=== PATIENT | male | born 1940 | race Caucasian/White ===

== ENCOUNTER 2018-06-24 21:48 | Emergency (ER) | payer MEDICARE, BC ==
[2018-06-24] MEDS ORDERED: Levofloxacin 500 MG Tab PO ONE (22:31)
--- NOTE | 2018-06-24 22:34 | EDM.PDOC ---
ED HPI GENERAL MEDICAL PROBLEM - General Chief Complaint: Skin Complaint Stated Complaint: L FOOT BURNING SENSATION Time Seen by Provider: 06/24/18 22:15 Source of Information: Reports: Patient, Family History Limitations: Reports: No Limitations - History of Present Illness INITIAL COMMENTS - FREE TEXT/NARRATIVE: Luisito reports burning involving the L foot near fifth toe today, in addition to some swelling and reddness. This evening, he called his daughter to report that the L foot appeared to be swollen, and she advised him to come in. Upon arrival, there is obvious malodorous discharge eminating from the 5th toe. He has taken no meds. Past Medical History Cardiovascular History: Reports: High Cholesterol, Hypertension Neurological History: Reports: Neuropathy, Peripheral Psychiatric History: Reports: Dementia Endocrine/Metabolic History: Reports: Diabetes, Type II ED ROS GENERAL - Review of Systems Review Of Systems: ROS reveals no pertinent complaints other than HPI. ED EXAM, SKIN/RASH Exam: See Below Exam Limited By: Other (memory impairments) General Appearance: Alert, WD/WN, No Apparent Distress Eye Exam: Bilateral Eye: EOMI, Normal Inspection, PERRL Ears: Normal External Exam Nose: Normal Inspection Throat/Mouth: Normal Voice Head: Normocephalic Neck: Normal Inspection, Supple, Non-Tender Respiratory/Chest: Decreased Breath Sounds Cardiovascular: Regular Rate, Rhythm, No Murmur (Male) Exam: Deferred Rectal (Males) Exam: Deferred Extremities: Other (L foot: some dependent edema and varicosities apparent; forefoot swelling with some erythema in proximity to the 5th toe near interdigital space; a tropic ulcer with debris and some drainage is observed, with some tenderness) Neurological: Alert, CN II-XII Intact, Memory Loss Remote Events, Memory Loss Recent Events Psychiatric: Flat Affect Skin: Warm, Dry, Other (tropic ulceration L 5th toe) Course - Vital Signs Text/Narrative:: I obtained a culture of the drainage from ulcer L 5th toe, cleaned the ulcer and applied a dressing. I administered Levaquin 500 mg po before discharge. - Orders/Labs/Meds Orders: Active Orders 24 hr Category Date Time Status CULTURE ROUTINE + SMEAR [RM] Stat Lab 06/24/18 22:28 Ordered Meds: Medications Discontinued Medications Generic Name Dose Route Start Last Admin Trade Name Freq PRN Reason Stop Dose Admin Levofloxacin 500 mg 06/24/18 22:31 Levaquin PO 06/24/18 22:32 ONETIME ONE Departure - Departure Time of Disposition: 22:40 Disposition: Home, Self-Care 01 Condition: Fair Clinical Impression: Cellulitis of fifth toe of left foot - Discharge Information *PRESCRIPTION DRUG MONITORING PROGRAM REVIEWED*: Not Applicable *COPY OF PRESCRIPTION DRUG MONITORING REPORT IN PATIENT STEVE: Not Applicable Referrals: Edmond Mancia MD [Primary Care Provider] - Forms: ED Department Discharge - Problem List & Annotations (1) Cellulitis of fifth toe of left foot SNOMED Code(s): 81917096 Code(s): L03.032 - CELLULITIS OF LEFT TOE Status: Acute Current Visit: Yes Annotation/Comment:: I suggested daily soaks, and follow up with PCP tomorrow for further management. Surgical debridement needed. - Problem List Review Problem List Initiated/Reviewed/Updated: Yes - My Orders Last 24 Hours: My Active Orders 06/24/18 22:28 CULTURE ROUTINE + SMEAR [RM] Stat - Assessment/Plan Last 24 Hours: My Active Orders 06/24/18 22:28 CULTURE ROUTINE + SMEAR [RM] Stat Plan: Follow up with PCP.
== END 2018-06-24 22:50 | disposition home or self-care (01) ==
LOC: FB.ED 21:48
DX: L03.032 Cellulitis of left toe (principal); E78.00 Pure hypercholesterolemia, unspecified; I10 Essential (primary) hypertension; E11.42 Type 2 diabetes mellitus with diabetic polyneuropathy
CPT/HCPCS: 87070; 87077; 87205; 99283; A9270

== ENCOUNTER 2018-07-01 08:25 | Day surgery (SDC) | payer MEDICARE, BC ==
[2018-07-01] MEDS ORDERED: Propofol 200 MG/20 ML SDV IV ONE (08:26)
[2018-07-01] MEDS ORDERED: Lactated Ringers 1,000 ML IV SCH (09:00)
[2018-07-01] MEDS ORDERED: Sodium Chloride 0.9% 10 ML Syringe FLUSH PRN (09:00)
[2018-07-01] MEDS ORDERED: Levofloxacin/Dextrose 5%-Water 500 MG in Premix Bag 1 BAG IV ONE (09:19)
[2018-07-01] MEDS ORDERED: metroNIDAZOLE/Normal Saline 500 MG in Premix Bag 1 BAG IV ONE (09:20)
[2018-07-01] MEDS ORDERED: Bupivacaine 0.5% 30 ML SDV INJECT ONE (10:35)
[2018-07-01] MEDS ORDERED: Lidocaine 1% 20 ML MDV INJECT ONE (10:35)
--- NOTE | 2018-07-01 10:58 | PCM.OPNOTE ---
- General Post-Op/Procedure Note Date of Surgery/Procedure: 07/01/18 Operative Procedure(s): left 5th toe amputation Findings: necrosis of left 5th toe with exposed bone prox phalange Pre Op Diagnosis: diabetic ulcer left toe with involvement of bone no necrosis Post-Op Diagnosis: diabetic ulcer left toe with involvement of bone with necrosis Anesthesia Technique: Local (7 ml 1 % lido with epi/0.5% buvipicaine), MAC Primary Surgeon: Amando Shannon Anesthesia Provider: Sri Marvin Pathology: left 5th toe Complications: None Condition: Good Free Text/Narrative:: see dictation
--- NOTE | 2018-07-03 11:01 | OR ---
DATE OF OPERATION: 07/01/2018 SURGEON: Amando Shannon MD PROCEDURE PERFORMED: Amputation of left 5th toe. PREOPERATIVE DIAGNOSIS: Necrosis of the left 5th toe with exposed bone. POSTOPERATIVE DIAGNOSIS: Necrosis of the left 5th toe with exposed bone. INDICATIONS FOR PROCEDURE: This is a 78-year-old white male who was referred with an ulceration with exposed bone. He was offered and accepted amputation of the toe. DESCRIPTION OF OPERATION: After an excellent IV sedation was administered, 7 mL of 1% lidocaine with epinephrine, 0.5% bupivacaine was used to create a digital block. A tennis racket incision was then made exposing the underlying proximal flange. This was then followed down to the metatarsophalangeal joint and the joint capsule was entered, and the bone was then transected, and the specimen was passed off the field. The exposed articular head was then amputated using a bone cutter and rongeured. The area was then irrigated and after pulling the flexor tendon and trimming it back in part of the extensor tendon, the subcu tissue was reapproximated with interrupted 2-0 Vicryl, 3-0 nylon was used to close the skin. Dressing was applied. Needle, sponge, and instrument counts were reported as correct. The patient tolerated the procedure well. It should be noted there was some bleeding noted along the skin edges which should encourage healing along with his ABIs. /[id number] /MODL
== END 2018-07-01 12:07 | disposition home or self-care (01) ==
LOC: FB.SDS 08:25
PROVIDERS: ATTEND Surgery
DX: E11.621 Type 2 diabetes mellitus with foot ulcer (principal); L97.524 Non-pressure chronic ulcer of other part of left foot with necrosis of bone; I73.9 Peripheral vascular disease, unspecified; Z79.84 Long term (current) use of oral hypoglycemic drugs; Z79.899 Other long term (current) drug therapy
CPT/HCPCS: 01480-QZ; 82962; 88305; 88311; J1956; J2001; J2704; J3490; J7120

== ENCOUNTER 2018-08-26 11:43 | Inpatient (IN) | payer MEDICARE, BC ==
[2018-08-26] MEDS ORDERED: Nitroglycerin 0.4 MG Tab.SL SL PRN (16:25)
--- NOTE | 2018-08-26 16:33 | PCM.HP ---
H&P History of Present Illness - General Date of Service: 08/26/18 Admit Problem/Dx: Admission Diagnosis/Problem Admission Diagnosis/Problem Dislocation of left hip Source of Information: Patient, Family History Limitations: Reports: No Limitations - History of Present Illness Initial Comments - Free Text/Narative: Luisito is a 78-year-old male admitted to swing bed for rehabilitation. He had a dislocation of the left hip over the weekend and was admitted to [facility].Ortho was consulted, They recommended an abduction brace; which he is wearing. However he is not able to get up,and he needs assistance. He has a history of coronary artery disease, type 2 diabetes, dementia and atrial fibrillation previously on well-controlled. - Related Data Allergies/Adverse Reactions: Allergies Allergy/AdvReac Type Severity Reaction Status Date / Time brimonidine Allergy Other Verified 07/01/18 08:50 diclofenac Allergy Nausea and Verified 07/01/18 08:50 Vomiting morphine Allergy Nausea and Verified 07/01/18 08:50 Vomiting Penicillins Allergy Airway Verified 07/01/18 08:50 Tightness Home Medications: Home Meds Clopidogrel [Plavix] 75 mg PO DAILY 06/24/18 [History] Donepezil HCl 10 mg PO BEDTIME 06/24/18 [History] Isosorbide Mononitrate [Imdur] 30 mg PO DAILY 06/24/18 [History] Metoprolol Tartrate 25 mg PO BID 06/24/18 [History] Rivaroxaban [Xarelto] 20 mg PO WITHDINNER 06/24/18 [History] metFORMIN [Glucophage] 500 mg PO BID 06/24/18 [History] Capsaicin [Zostrix 0.025% Crm] 1 applic TP QID PRN 06/30/18 [History] Nitroglycerin [Nitrostat] 0.4 mg SL Q5M PRN 06/30/18 [History] Acetaminophen [Tylenol] 650 mg PO Q6H 08/26/18 [History] Dextran 70/Hypromellose [Artificial Tears] 1 drop EYELF Q4H PRN 08/26/18 [ History] Lidocaine 5% [Lidoderm 5%] 700 mg TOP DAILY 08/26/18 [History] Rosuvastatin [Crestor] 40 mg PO DAILY 08/26/18 [History] Sennosides/Docusate Sodium [Senna-S] 1 tab PO BID 08/26/18 [History] Past Medical History HEENT History: Reports: Glaucoma, Hard of Hearing, Impaired Vision Other HEENT History: ASTIGMATISM Cardiovascular History: Reports: Afib, Angina, Blood Clots/VTE/DVT, CAD, High Cholesterol, Hypertension, NE, PVD Musculoskeletal History: Reports: Other (See Below) Other Musculoskeletal History: ENTHESOPATHY OF HIP REGION Neurological History: Reports: Neuropathy, Peripheral Other Neuro History: CONFUSION, DEMENTIA Psychiatric History: Reports: Dementia Endocrine/Metabolic History: Reports: Diabetes, Type II, Obesity/BMI 30+ Dermatologic History: Reports: Other (See Below) Other Dermatologic History: bruising easily - Past Surgical History Other HEENT Surgeries/Procedures: EYE PROCEDURE Other Cardiovascular Surgeries/Procedures: EXPRESS SHUNT, CARDIAC CATHETERIZATION Musculoskeletal Surgical History: Reports: Hip Replacement, Joint Replacement Social & Family History - Family History Family Medical History: Noncontributory - Tobacco Use Smoking Status *Q: Former Smoker Years of Tobacco use: 40 Used Tobacco, but Quit: No Month/Year Tobacco Last Used: 1985 Second Hand Smoke Exposure: No - Caffeine Use Caffeine Use: Reports: Coffee - Alcohol Use Days Per Week of Alcohol Use: 7 Number of Drinks Per Day: 1 Total Drinks Per Week: 7 - Recreational Drug Use Recreational Drug Use: No H&P Review of Systems - Review of Systems: Review Of Systems: ROS reveals no pertinent complaints other than HPI. Exam - Exam Exam: See Below - Vital Signs Weight: 87.997 kg - Exam General: Alert, Oriented, 4 HEENT: PERRLA, Hearing Intact, Mucosa Moist & [place], Nares Patent, Normal Nasal Septum, Posterior Pharynx Clear, Conjunctiva Clear, EOMI, EACs Clear, TMs Clear Neck: Supple, Trachea Midline, 2 Lungs: Clear to Auscultation, Normal Respiratory Effort Cardiovascular: Irregular Rhythm GI/Abdominal Exam: Normal Bowel Sounds, Soft, Non-Tender, No Organomegaly, No Distention, No Abnormal Bruit, No Mass, Pelvis Stable (Male) Exam: Deferred Rectal (Males) Exam: Deferred Back Exam: Normal Inspection, Full Range of Motion, NT Extremities: Normal Inspection, Normal Range of Motion, Non-Tender, No Pedal Edema, Normal Capillary Refill Skin: Warm, Dry, Intact Neurological: Cranial Nerves Intact, Reflexes Equal Bilateral Neuro Extensive - Mental Status: Alert, Oriented x3, Normal Mood/Affect, Normal Cognition Neuro Extensive - Motor, Sensory, Reflexes: CN II-XII Intact, Normal Gait, Normal Reflexes Psychiatric: Alert, Other (memory impaired) - Problem List (1) Hip dislocation, left SNOMED Code(s): 676232233 ICD Code: S73.005A - UNSPECIFIED DISLOCATION OF LEFT HIP, INITIAL ENCOUNTER Status: Acute Current Visit: Yes Qualifiers: Encounter type: subsequent encounter Qualified Code(s): S73.005D - Unspecified dislocation of left hip, subsequent encounter (2) Dementia SNOMED Code(s): 44765695 ICD Code: F03.90 - UNSPECIFIED DEMENTIA WITHOUT BEHAVIORAL DISTURBANCE Status: Chronic Current Visit: Yes Qualifiers: Dementia type: Alzheimer's disease (3) Debility SNOMED Code(s): 51300171 ICD Code: R53.81 - OTHER MALAISE Status: Acute Current Visit: Yes (4) Diabetes type 2, controlled SNOMED Code(s): 24637695, 927953294 ICD Code: E11.9 - TYPE 2 DIABETES MELLITUS WITHOUT COMPLICATIONS Status: Acute Current Visit: Yes Qualifiers: Diabetes mellitus alf insulin use: without alf use (5) CAD (coronary artery disease) SNOMED Code(s): 19908899 ICD Code: I25.10 - ATHSCL HEART DISEASE OF [place] CORONARY ARTERY W/O ANG PCTRS Status: Chronic Current Visit: Yes Qualifiers: Coronary Disease-Associated Artery/Lesion type: [place] artery (6) Afib SNOMED Code(s): 89113127 ICD Code: I48.91 - UNSPECIFIED ATRIAL FIBRILLATION Status: Chronic Current Visit: Yes Qualifiers: Atrial fibrillation type: chronic Qualified Code(s): I48.2 - Chronic atrial fibrillation (7) Peripheral vascular disease SNOMED Code(s): 153864005 ICD Code: I73.9 - PERIPHERAL VASCULAR DISEASE, UNSPECIFIED Status: Chronic Current Visit: Yes (8) H/O deep venous thrombosis SNOMED Code(s): 202593516 ICD Code: Z86.718 - PERSONAL HISTORY OF OTHER VENOUS THROMBOSIS AND EMBOLISM Status: Chronic Current Visit: Yes Problem List Initiated/Reviewed/Updated: Yes Orders Last 24hrs: Active Orders 24 hr Category Date Time Status Patient Status [ADT] Routine ADT 08/26/18 16:23 Ordered Height and Weight [RC] WEEKLY Care 08/26/18 16:23 Ordered Oxygen Therapy [RC] PRN Care 08/26/18 16:23 Ordered Up With Assistance [RC] ASDIRECTED Care 08/26/18 16:23 Ordered VTE/DVT Education [RC] Per Unit Routine Care 08/26/18 16:23 Ordered Vital Signs [RC] PER UNIT ROUTINE Care 08/26/18 16:23 Ordered OT Evaluation and Treatment [CONS] Routine Cons 08/26/18 16:23 Ordered PT Evaluation and Treatment [CONS] Routine Cons 08/26/18 16:23 Ordered Consistent Carbohydrate Diet [DIET] Diet 08/26/18 Dinner Ordered Acetaminophen [Tylenol] Med 08/26/18 16:30 Ordered 650 mg PO Q6H Clopidogrel [Plavix] Med 08/27/18 09:00 Ordered 75 mg PO DAILY Dextran 70/Hypromellose [Artificial Tears] Med 08/26/18 16:25 Ordered 1 drop EYELF Q4H PRN Docusate Sodium/Sennosides [Senna Plus] Med 08/26/18 21:00 Ordered 1 tab PO BID Donepezil [Aricept] Med 08/26/18 21:00 Ordered 10 mg PO BEDTIME Isosorbide Mononitrate [Imdur] Med 08/27/18 09:00 Ordered 30 mg PO DAILY Lidocaine 5% [Lidoderm 5%] Med 08/27/18 09:00 Ordered 700 mg TOP DAILY Metoprolol Tartrate [Lopressor] Med 08/26/18 21:00 Ordered 25 mg PO BID Nitroglycerin [Nitrostat] Med 08/26/18 16:25 Ordered 0.4 mg SL Q5M PRN Rivaroxaban [Xarelto] Med 08/26/18 18:00 Ordered 20 mg PO WITHDINNER Rosuvastatin [Crestor] Med 08/27/18 09:00 Ordered 40 mg PO DAILY metFORMIN [Glucophage] Med 08/26/18 21:00 Ordered 500 mg PO BID Resuscitation Status Routine Resus Stat 08/26/18 16:23 Ordered Medication Orders Acetaminophen (Tylenol) 650 mg PO Q6H [facility] Clopidogrel Bisulfate (Plavix) 75 mg PO DAILY [facility] Donepezil HCl (Aricept) 10 mg PO BEDTIME [facility] Isosorbide Mononitrate (Imdur) 30 mg PO DAILY [facility] Lidocaine (Lidoderm 5%) 700 mg TOP DAILY [facility] Metformin HCl (Glucophage) 500 mg PO BID [facility] Metoprolol Tartrate (Lopressor) 25 mg PO BID [facility] Nitroglycerin (Nitrostat) 0.4 mg SL Q5M PRN PRN Reason: Chest Pain Non-Formulary Medication (Dextran 70/Hypromellose [Artificial Tears]) 1 drop EYELF Q4H PRN PRN Reason: Dry Eyes Non-Formulary Medication (Rosuvastatin [Crestor]) 40 mg PO DAILY [facility] Rivaroxaban (Xarelto) 20 mg PO WITHDINNER [facility] Senna/Docusate Sodium (Senna Plus) 1 tab PO BID [facility] Assessment/Plan Comment:: I recommend admission,PT/OT. and Resume home meds.
[2018-08-26] MEDS ORDERED: Polyvinyl Alcohol 1.4% Ophth Soln 15 ML Bottle EYELF PRN (17:00)
[2018-08-26] MEDS: Acetaminophen 325 MG Tab PO SCH ×2 (18:07→21:40)
[2018-08-26] MEDS: metFORMIN 500 MG Tab PO SCH (18:07)
[2018-08-26] MEDS: Metoprolol Tartrate 25 MG Tab PO SCH (21:40)
[2018-08-26] MEDS: Donepezil 10 MG Tab PO SCH (21:41)
[2018-08-27] MEDS: Acetaminophen 325 MG Tab PO SCH ×4 (05:07→21:30)
[2018-08-27] MEDS: Isosorbide Mononitrate 30 MG Tab.ER PO SCH (08:53)
[2018-08-27] MEDS: metFORMIN 500 MG Tab PO SCH ×2 (08:53→17:59)
[2018-08-27] MEDS: Rosuvastatin 20 MG Tab PO SCH (08:53)
[2018-08-27] MEDS: Metoprolol Tartrate 25 MG Tab PO SCH ×2 (08:54→21:22)
[2018-08-27] MEDS: Clopidogrel 75 MG Tab PO SCH (08:54)
[2018-08-27] MEDS ORDERED: Lidocaine 5% 700 MG Patch TOP SCH (09:00)
[2018-08-27] MEDS: Donepezil 10 MG Tab PO SCH (21:22)
[2018-08-28] MEDS: Acetaminophen 325 MG Tab PO SCH ×4 (04:15→21:30)
[2018-08-28] MEDS: Rosuvastatin 20 MG Tab PO SCH (09:20)
[2018-08-28] MEDS: metFORMIN 500 MG Tab PO SCH ×2 (09:20→17:31)
[2018-08-28] MEDS: Isosorbide Mononitrate 30 MG Tab.ER PO SCH (09:20)
[2018-08-28] MEDS: Clopidogrel 75 MG Tab PO SCH (09:21)
[2018-08-28] MEDS: Metoprolol Tartrate 25 MG Tab PO SCH ×2 (09:21→21:13)
[2018-08-28] MEDS: Donepezil 10 MG Tab PO SCH (21:13)
[2018-08-29] MEDS: Acetaminophen 325 MG Tab PO SCH ×4 (04:17→21:40)
[2018-08-29] MEDS: Isosorbide Mononitrate 30 MG Tab.ER PO SCH (08:22)
[2018-08-29] MEDS: metFORMIN 500 MG Tab PO SCH ×2 (08:22→18:08)
[2018-08-29] MEDS: Rosuvastatin 20 MG Tab PO SCH (08:22)
[2018-08-29] MEDS: Clopidogrel 75 MG Tab PO SCH (08:23)
[2018-08-29] MEDS: Metoprolol Tartrate 25 MG Tab PO SCH ×2 (08:23→21:39)
[2018-08-29] MEDS: Donepezil 10 MG Tab PO SCH (21:39)
[2018-08-30] MEDS: Acetaminophen 325 MG Tab PO SCH ×4 (04:02→22:06)
[2018-08-30] MEDS: metFORMIN 500 MG Tab PO SCH ×2 (10:25→18:27)
[2018-08-30] MEDS: Rosuvastatin 20 MG Tab PO SCH (10:26)
[2018-08-30] MEDS: Isosorbide Mononitrate 30 MG Tab.ER PO SCH (10:26)
[2018-08-30] MEDS: Metoprolol Tartrate 25 MG Tab PO SCH ×2 (10:27→20:41)
[2018-08-30] MEDS: Clopidogrel 75 MG Tab PO SCH (10:28)
[2018-08-30] MEDS: Donepezil 10 MG Tab PO SCH (20:41)
[2018-08-31] MEDS: Acetaminophen 325 MG Tab PO SCH ×2 (04:00→10:04)
[2018-08-31] MEDS: metFORMIN 500 MG Tab PO SCH (07:47)
[2018-08-31] MEDS: Metoprolol Tartrate 25 MG Tab PO SCH (08:59)
[2018-08-31] MEDS: Clopidogrel 75 MG Tab PO SCH (08:59)
[2018-08-31] MEDS: Rosuvastatin 20 MG Tab PO SCH (08:59)
[2018-08-31] MEDS: Isosorbide Mononitrate 30 MG Tab.ER PO SCH (09:00)
--- NOTE | 2018-08-31 15:06 | PN ---
DATE SEEN: 08/31/2018 SUBJECTIVE: Luisito Mata is a delightful 78-year-old, male, seen today for review. [place]. Had a recent left hip dislocation, reapproximation. Has a specific brace on board. PT referral timely and appropriate. Doing well. Ambulating using a walker. OBJECTIVE: GENERAL: Appears comfortable. Speech was fluent. NECK: Benign. Thyroid small. CHEST: Clear in all lung valdez. HEART: No ectopy or murmur. ABDOMEN: Benign. ASSESSMENT: Left hip dislocation. PLAN: Appears well, comfortable with brace. has been instructed on brace impact and options, followup appointment with Orthopedics planned. Analgesics on board. Tylenol is all that is required. Medications will be continued as appropriate. Discharge planning, exam, and discharge notification one-half hour duration. /[id number] 1221 DAYNA/ADRIANA
== END 2018-08-31 11:30 | disposition home or self-care (01) | DRG 950 ==
LOC: FB.MS 14:30
PROVIDERS: ADMIT Family Medicine; ATTEND Family Medicine
DX: S73.005D Unspecified dislocation of left hip, subsequent encounter (principal); R53.81 Other malaise; E11.42 Type 2 diabetes mellitus with diabetic polyneuropathy; I25.10 Atherosclerotic heart disease of native coronary artery without angina pectoris; M76.9 Unspecified enthesopathy, lower limb, excluding foot; I48.2 Chronic atrial fibrillation; Z79.01 Long term (current) use of anticoagulants; I73.9 Peripheral vascular disease, unspecified; Z86.718 Personal history of other venous thrombosis and embolism; H40.9 Unspecified glaucoma; H91.90 Unspecified hearing loss, unspecified ear; H54.7 Unspecified visual loss; H52.209 Unspecified astigmatism, unspecified eye; E78.00 Pure hypercholesterolemia, unspecified; I25.2 Old myocardial infarction; Z87.891 Personal history of nicotine dependence; E66.9 Obesity, unspecified; Z68.25 Body mass index [BMI] 25.0-25.9, adult; Z79.84 Long term (current) use of oral hypoglycemic drugs; Z88.5 Allergy status to narcotic agent; Z88.0 Allergy status to penicillin; Z88.8 Allergy status to other drugs, medicaments and biological substances
CPT/HCPCS: 97165-GO; 97530-GO; 97535-GO; A9270-GY

== ENCOUNTER 2019-02-03 02:38 | Emergency (ER) | payer MEDICARE, BC ==
--- NOTE | 2019-02-03 04:48 | EDM.PDOC ---
ED HPI GENERAL MEDICAL PROBLEM - General Chief Complaint: General Stated Complaint: weakness Time Seen by Provider: 02/03/19 02:55 Source of Information: Reports: Patient - History of Present Illness INITIAL COMMENTS - FREE TEXT/NARRATIVE: Patient presented to the ED because of feeling weak. There is no cough and cold, no fever/chills. There is no N/V/D. Patient's daughter that he requires a lot of help to ambulate. She doesn't exactly know if it's related to his PAD. - Related Data Allergies Allergy/AdvReac Type Severity Reaction Status Date / Time brimonidine Allergy Other Verified 07/01/18 08:50 diclofenac Allergy Nausea and Verified 07/01/18 08:50 Vomiting morphine Allergy Nausea and Verified 07/01/18 08:50 Vomiting Penicillins Allergy Airway Verified 07/01/18 08:50 Tightness Home Meds: Home Meds Clopidogrel [Plavix] 75 mg PO DAILY 06/24/18 [History] Donepezil HCl 10 mg PO BEDTIME 06/24/18 [History] Isosorbide Mononitrate [Imdur] 30 mg PO DAILY 06/24/18 [History] Metoprolol Tartrate 25 mg PO BID 06/24/18 [History] Rivaroxaban [Xarelto] 20 mg PO WITHDINNER 06/24/18 [History] metFORMIN [Glucophage] 500 mg PO BID 06/24/18 [History] Capsaicin [Zostrix 0.025% Crm] 1 applic TP QID PRN 06/30/18 [History] Nitroglycerin [Nitrostat] 0.4 mg SL Q5M PRN 06/30/18 [History] Acetaminophen [Tylenol] 650 mg PO Q6H 08/26/18 [History] Dextran 70/Hypromellose [Artificial Tears] 1 drop EYELF Q4H PRN 08/26/18 [ History] Lidocaine 5% [Lidoderm 5%] 700 mg TOP DAILY 08/26/18 [History] Rosuvastatin [Crestor] 40 mg PO DAILY 08/26/18 [History] Sennosides/Docusate Sodium [Senna-S] 1 tab PO BID 08/26/18 [History] Sulfamethoxazole/Trimethoprim [Bactrim Ds Tablet] 1 tab PO BID 02/03/19 [History ] Past Medical History HEENT History: Reports: Glaucoma, Hard of Hearing, Impaired Vision Other HEENT History: ASTIGMATISM Cardiovascular History: Reports: Afib, Angina, Blood Clots/VTE/DVT, CAD, High Cholesterol, Hypertension, [place], PVD, Stents, Other (See Below) Other Cardiovascular History: peripheral artery disease Musculoskeletal History: Reports: Other (See Below) Other Musculoskeletal History: ENTHESOPATHY OF HIP REGION Neurological History: Reports: Neuropathy, Peripheral Other Neuro History: CONFUSION, DEMENTIA Psychiatric History: Reports: Dementia Endocrine/Metabolic History: Reports: Diabetes, Type II, Obesity/BMI 30+ Dermatologic History: Reports: Other (See Below) Other Dermatologic History: bruising easily - Past Surgical History Other HEENT Surgeries/Procedures: EYE PROCEDURE Other Cardiovascular Surgeries/Procedures: EXPRESS SHUNT, CARDIAC CATHETERIZATION Musculoskeletal Surgical History: Reports: Hip Replacement, Joint Replacement Social & Family History - Family History Family Medical History: Noncontributory - Tobacco Use Smoking Status *Q: Never Smoker - Caffeine Use Caffeine Use: Reports: Coffee - Recreational Drug Use Recreational Drug Use: No ED ROS GENERAL - Review of Systems Review Of Systems: See Below Constitutional: Reports: No Symptoms HEENT: Reports: No Symptoms Respiratory: Reports: No Symptoms Cardiovascular: Reports: No Symptoms GI/Abdominal: Reports: No Symptoms : Reports: No Symptoms Musculoskeletal: Reports: No Symptoms Skin: Reports: No Symptoms Neurological: Reports: Weakness Psychiatric: Reports: No Symptoms ED EXAM, GENERAL - Physical Exam Exam: See Below Exam Limited By: Other (dementia-unable to answer questions and follow comands.) Ears: Normal External Exam, Normal Canal, Hearing Loss GI/Abdominal: Normal Bowel Sounds, Soft, No Organomegaly, No Distention, No Abnormal Bruit (Male) Exam: No Hernia, Normal Inspection Back Exam: Normal Inspection Neurological: Alert, Oriented, CN II-XII Intact, Normal Cognition Course - Vital Signs Text/Narrative:: Labs/EKG/CXR reviewed with patient and family His BNP is elevated but he is not in failure, oxygen saturation is 95% on RA no crackles or edema. Last Recorded V/S: Last Vital Signs Temp 36.8 C 02/03/19 02:40 Pulse 84 02/03/19 02:40 Resp 16 02/03/19 02:40 BP 125/61 02/03/19 02:40 Pulse Ox 93 L 02/03/19 02:40 - Orders/Labs/Meds Orders: Active Orders 24 hr Category Date Time Status EKG Documentation Completion [RC] ASDIRECTED Care 02/03/19 03:03 Active EKG 12 Lead [EK] Routine Ther 02/03/19 03:03 Ordered Labs: Laboratory Tests 02/03/19 02/03/19 02/03/19 Range/Units 03:20 03:20 03:20 WBC 6.6 (4.5-12.0) X10-3/uL RBC 3.42 L (4.30-5.75) x10(6)uL Hgb 12.2 L (13.5-17.8) g/dL Hct 35.6 (30.0-51.3) % MCV 103.8 H (80-96) fL MCH 35.7 H (27.7-33.6) pg MCHC 34.4 (32.2-35.4) g/dL RDW 12.8 (11.5-15.5) % Plt Count 230 (125-369) X10(3)uL MPV 6.8 L (7.4-10.4) fL Add Manual Diff Yes Neutrophils % (Manual) 72 (46-82) % Band Neutrophils % 2 (0-6) % Lymphocytes % (Manual) 12 L (13-37) % Monocytes % (Manual) 10 (4-12) % Eosinophils % (Manual) 4 (0-5) % Sodium 135 (135-145) mmol/L Potassium 4.5 (3.5-5.3) mmol/L Chloride 100 (100-110) mmol/L Carbon Dioxide 23 (21-32) mmol/L BUN 10 (7-18) mg/dL Creatinine 1.1 (0.70-1.30) mg/dL Est Cr Clr Drug Dosing TNP Estimated GFR (MDRD) > 60 (>60) BUN/Creatinine Ratio 9.1 (9-20) Glucose 189 H (80-116) mg/dL Lactic Acid (0.4-2.2) mmol/L Calcium 8.7 (8.6-10.2) mg/dL Total Bilirubin 0.9 (0.1-1.3) mg/dL AST 22 (5-25) IU/L ALT 34 (12-36) U/L Alkaline Phosphatase 49 L (56-112) IU/L Troponin I 0.052 (<0.017-0.056) ng/mL NT-Pro-B Natriuret Pep 1697 H* (<=450) pg/mL Total Protein 7.1 (6.0-8.0) g/dL Albumin 3.4 (3.2-4.6) g/dL Globulin 3.7 g/dL Albumin/Globulin Ratio 0.9 02/03/19 Range/Units 03:20 WBC (4.5-12.0) X10-3/uL RBC (4.30-5.75) x10(6)uL Hgb (13.5-17.8) g/dL Hct (30.0-51.3) % MCV (80-96) fL MCH (27.7-33.6) pg MCHC (32.2-35.4) g/dL RDW (11.5-15.5) % Plt Count (125-369) X10(3)uL MPV (7.4-10.4) fL Add Manual Diff Neutrophils % (Manual) (46-82) % Band Neutrophils % (0-6) % Lymphocytes % (Manual) (13-37) % Monocytes % (Manual) (4-12) % Eosinophils % (Manual) (0-5) % Sodium (135-145) mmol/L Potassium (3.5-5.3) mmol/L Chloride (100-110) mmol/L Carbon Dioxide (21-32) mmol/L BUN (7-18) mg/dL Creatinine (0.70-1.30) mg/dL Est Cr Clr Drug Dosing Estimated GFR (MDRD) (>60) BUN/Creatinine Ratio (9-20) Glucose (80-116) mg/dL Lactic Acid 1.9 (0.4-2.2) mmol/L Calcium (8.6-10.2) mg/dL Total Bilirubin (0.1-1.3) mg/dL AST (5-25) IU/L ALT (12-36) U/L Alkaline Phosphatase (56-112) IU/L Troponin I (<0.017-0.056) ng/mL NT-Pro-B Natriuret Pep (<=450) pg/mL Total Protein (6.0-8.0) g/dL Albumin (3.2-4.6) g/dL Globulin g/dL Albumin/Globulin Ratio Departure - Departure Time of Disposition: 04:45 Disposition: Home, W Home Health Agency 06 Condition: Good Clinical Impression: Weakness, Fatigue - Discharge Information Instructions: Fatigue Referrals: Edmond Mancia MD [Primary Care Provider] - Forms: ED Department Discharge Additional Instructions: please read discharge instructions on weakness and fatigue continue your antibiotics until gone keep your appointment tyo see the vascular surgeon today - My Orders Last 24 Hours: My Active Orders 02/03/19 03:03 EKG Documentation Completion [RC] ASDIRECTED EKG 12 Lead [EK] Routine - Assessment/Plan Last 24 Hours: My Active Orders 02/03/19 03:03 EKG Documentation Completion [RC] ASDIRECTED EKG 12 Lead [EK] Routine
--- NOTE | 2019-02-03 10:56 | CR ---
INDICATION: Weakness, cough. CHEST: An AP upright view of the chest was obtained with the patient unable to fully cooperate with the examination, relatively poor inspiration is noted. Overlying EKG leads are noted. Snaps are noted overlying the chest. The heart is enlarged. The aorta is tortuous. A consolidating pneumonia or effusion was not identified. However, with the poor inspiration and somewhat heavy markings at the lung bases , it is difficult to exclude minimal patchy bronchopneumonia at the lung bases. Findings compatible with exogenous obesity are noted. IMPRESSION: 1. No definite acute process but difficult to exclude minimal patchy bronchopneumonia at the lung bases. 2. ASHD with cardiomegaly. 3. Exogenous obesity. MTDD
== END 2019-02-03 05:00 | disposition home health service (06) ==
LOC: FB.ED 02:38
DX: R53.1 Weakness (principal); R53.83 Other fatigue; I48.91 Unspecified atrial fibrillation; E78.5 Hyperlipidemia, unspecified; I25.10 Atherosclerotic heart disease of native coronary artery without angina pectoris; E11.9 Type 2 diabetes mellitus without complications; E66.9 Obesity, unspecified; Z88.5 Allergy status to narcotic agent; Z88.0 Allergy status to penicillin; Z88.6 Allergy status to analgesic agent; Z88.8 Allergy status to other drugs, medicaments and biological substances; Z79.84 Long term (current) use of oral hypoglycemic drugs; Z79.899 Other long term (current) drug therapy; Z79.02 Long term (current) use of antithrombotics/antiplatelets
CPT/HCPCS: 36415; 71045; 80053; 83605; 83880; 84484; 85025; 93005; 99285-25

== ENCOUNTER 2019-04-13 13:55 | Inpatient (IN) | payer MEDICARE, BC ==
[2019-04-13] MEDS ORDERED: Nitroglycerin 0.4 MG Tab.SL SL PRN (17:16)
[2019-04-13] MEDS ORDERED: Polyvinyl Alcohol 1.4% Ophth Soln 15 ML Bottle EYELF PRN (17:16)
[2019-04-13] MEDS ORDERED: Acetaminophen 325 MG Tab PO PRN (17:16)
--- NOTE | 2019-04-13 17:29 | PCM.HP.2 ---
H&P History of Present Illness - General Date of Service: 04/13/19 Admit Problem/Dx: Admission Diagnosis/Problem Admission Diagnosis/Problem Rehabilitation therapy Source of Information: Patient, Family, Old Records - History of Present Illness Initial Comments - Free Text/Narative: Luisito is 78 yr old male who was admitted to [facility] on Apr 05 for non- healing chronic right foot ulcer. MRI showed small area of osteomyelitis of 1st metatarsal. He underwent debridement on 04/11 and IV antibiotics were discontinued as bone margins were negative. Patient also had CTA of abdomen that showed extensive femoral stenosis. He underwent femoral stenting on Apr 07. He has surgical boot on, weight bearing as tolerated. PT/OT recommended. Had wound vac placed on Apr 07, remove wound vac when battery dies. Dry sterile dressing can stay on until patient follows up with Dr Jones, podiatry Apr 28. Follow up with vascular surgery on Apr 21. Follow up with Dr Mancia on Apr 22. Hgb 10.4 which has been stable for last few days. He is feeling fine, no complaints when arrived to swing bed. Flu vaccin 01/10/2019, Pneumococcal PCV 13 10/30/2018, PPSV23 01/21/2011, Shingrix 02/15/2019, 11/05/2018, TDAP 08/21/2010. - Related Data Allergies/Adverse Reactions: Allergies Allergy/AdvReac Type Severity Reaction Status Date / Time brimonidine Allergy Other Verified 04/13/19 14:52 diclofenac Allergy Nausea and Verified 04/13/19 14:52 Vomiting morphine Allergy Nausea and Verified 04/13/19 14:52 Vomiting Penicillins Allergy Airway Verified 04/13/19 14:52 Tightness Home Medications: Home Meds Donepezil HCl 10 mg PO BEDTIME 06/24/18 [History] Isosorbide Mononitrate [Imdur] 30 mg PO DAILY 06/24/18 [History] Metoprolol Tartrate 25 mg PO BID 06/24/18 [History] Rivaroxaban [Xarelto] 20 mg PO WITHDINNER 06/24/18 [History] metFORMIN [Glucophage] 500 mg PO BIDMEALS 06/24/18 [History] Nitroglycerin [Nitrostat] 0.4 mg SL Q5M PRN 06/30/18 [History] Acetaminophen [Tylenol] 650 mg PO Q6H PRN 08/26/18 [History] Rosuvastatin [Crestor] 40 mg PO DAILY 08/26/18 [History] Aspirin 81 mg PO DAILY 04/13/19 [History] Cyanocobalamin (Vitamin B-12) [Vitamin B-12] 500 mcg PO DAILY 04/13/19 [History] Folic Acid 0.8 mg PO DAILY 04/13/19 [History] Polyvinyl Alcohol [Liquitears] 1 drop EYELF Q4H PRN 04/13/19 [History] Past Medical History HEENT History: Reports: Glaucoma, Hard of Hearing, Impaired Vision Other HEENT History: ASTIGMATISM Cardiovascular History: Reports: Afib, Angina, Blood Clots/VTE/DVT, CAD, High Cholesterol, Hypertension, [place], PVD, Stents, Other (See Below) Other Cardiovascular History: peripheral artery disease Musculoskeletal History: Reports: Other (See Below) Other Musculoskeletal History: ENTHESOPATHY OF HIP REGION Neurological History: Reports: Neuropathy, Peripheral Other Neuro History: CONFUSION, DEMENTIA Psychiatric History: Reports: Dementia Endocrine/Metabolic History: Reports: Diabetes, Type II, Obesity/BMI 30+ Dermatologic History: Reports: Other (See Below) Other Dermatologic History: bruising easily - Past Surgical History Other HEENT Surgeries/Procedures: EYE PROCEDURE Cardiovascular Surgical History: Reports: Vascular Surgery (femoral stents 2019) Other Cardiovascular Surgeries/Procedures: EXPRESS SHUNT, CARDIAC CATHETERIZATION Musculoskeletal Surgical History: Reports: Hip Replacement, Joint Replacement, Other (See Below) (left 5th toe amputation, partial resection of 1st ray right foot with debridement 04/11/2019) Social & Family History - Family History Family Medical History: Noncontributory - Tobacco Use Smoking Status *Q: Former Smoker Years of Tobacco use: 20 Used Tobacco, but Quit: No - Caffeine Use Caffeine Use: Reports: Coffee, Soda Caffeine Use Comment: 1 cup per day - Alcohol Use Days Per Week of Alcohol Use: 1 Number of Drinks Per Day: 1 Total Drinks Per Week: 1 Date of Last Drink: 04/02/19 - Recreational Drug Use Recreational Drug Use: No H&P Review of Systems - Review of Systems: Review Of Systems: See Below General: Reports: No Symptoms HEENT: Reports: No Symptoms Pulmonary: Reports: No Symptoms Cardiovascular: Reports: No Symptoms Gastrointestinal: Reports: No Symptoms Genitourinary: Reports: No Symptoms Musculoskeletal: Denies: Leg Pain, Foot Pain Skin: Reports: Wound (right foot, right groin) Neurological: Reports: Pre-Existing Deficit Hematologic/Lymphatic: Reports: Anemia Exam - Exam Exam: See Below - Vital Signs Vital Signs: Last Vital Signs Temp 97.4 F 04/13/19 16:28 Pulse 69 04/13/19 16:28 Resp 18 04/13/19 16:28 BP 119/79 04/13/19 16:28 Pulse Ox 99 04/13/19 16:28 - Exam General: Alert, Oriented, Cooperative. No: Mild Distress HEENT: PERRLA, Conjunctiva Clear, Mucosa Moist & [place], Nares Patent, Posterior Pharynx Clear Neck: Supple, Trachea Midline. 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 SNOMED Code(s): 26053824378079011 ICD Code: Z89.411 - ACQUIRED ABSENCE OF RIGHT GREAT TOE Status: Acute Current Visit: Yes Onset Date: 04/11/19 (2) S/P debridement SNOMED Code(s): 501130021, 355975212 ICD Code: Z98.890 - OTHER SPECIFIED POSTPROCEDURAL STATES Status: Acute Current Visit: Yes Onset Date: 04/11/19 (3) S/P vascular surgery SNOMED Code(s): 920202378, 403299485 ICD Code: Z98.890 - OTHER SPECIFIED POSTPROCEDURAL STATES Status: Acute Current Visit: Yes Onset Date: 04/07/19 Problem Details: Right femoral endarterectomy (4) Diabetes type 2, controlled SNOMED Code(s): 32463200, 801415158 ICD Code: E11.9 - TYPE 2 DIABETES MELLITUS WITHOUT COMPLICATIONS Status: Acute Current Visit: No Qualifiers: Diabetes mellitus penitentiary insulin use: without buttermaker helper use (5) Afib SNOMED Code(s): 89521952 ICD Code: I48.91 - UNSPECIFIED ATRIAL FIBRILLATION Status: Chronic Current Visit: No Qualifiers: Atrial fibrillation type: chronic (6) CAD (coronary artery disease) SNOMED Code(s): 34925815 ICD Code: I25.10 - ATHSCL HEART DISEASE OF [place] CORONARY ARTERY W/O ANG PCTRS Status: Chronic Current Visit: No Qualifiers: Coronary Disease-Associated Artery/Lesion type: [place] artery (7) Dementia SNOMED Code(s): 20931022 ICD Code: F03.90 - UNSPECIFIED DEMENTIA WITHOUT BEHAVIORAL DISTURBANCE Status: Chronic Current Visit: No Qualifiers: Dementia type: Alzheimer's disease (8) Peripheral vascular disease SNOMED Code(s): 118756151 ICD Code: I73.9 - PERIPHERAL VASCULAR DISEASE, UNSPECIFIED Status: Chronic Current Visit: No Problem List Initiated/Reviewed/Updated: Yes Orders Last 24hrs: Active Orders 24 hr Category Date Time Status Patient Status [ADT] Routine ADT 04/13/19 16:28 Active Blood Glucose Check, Bedside [RC] 07,17 Care 04/13/19 16:28 Active Dietary Supplements [RC] 07,12,18 Care 04/13/19 16:28 Active Height and Weight [RC] WEEKLY Care 04/13/19 16:28 Active Oxygen Therapy [RC] PRN Care 04/13/19 16:28 Active Up With Assistance [RC] ASDIRECTED Care 04/13/19 16:28 Active VTE/DVT Education [RC] Per Unit Routine Care 04/13/19 16:28 Active Vital Signs [RC] PER UNIT ROUTINE Care 04/13/19 16:28 Active OT Evaluation and Treatment [CONS] Routine Cons 04/13/19 16:28 Active PT Evaluation and Treatment [CONS] Routine Cons 04/13/19 16:28 Active Consistent Carbohydrate Diet [DIET] Diet 04/13/19 Dinner Active Acetaminophen [Tylenol] Med 04/13/19 17:16 Ordered 650 mg PO Q6H PRN Aspirin Med 04/14/19 09:00 Ordered 81 mg PO DAILY Cyanocobalamin (Vitamin B12) [Vitamin B12] Med 04/14/19 09:00 Ordered 500 mcg PO DAILY Donepezil [Aricept] Med 04/13/19 21:00 Ordered 10 mg PO BEDTIME Folic Acid Med 04/14/19 09:00 Ordered 0.8 mg PO DAILY Isosorbide Mononitrate [Imdur] Med 04/14/19 09:00 Ordered 30 mg PO DAILY Metoprolol Tartrate [Lopressor] Med 04/13/19 21:00 Ordered 25 mg PO BID Nitroglycerin [Nitrostat] Med 04/13/19 17:16 Ordered 0.4 mg SL Q5M PRN Polyvinyl Alcohol [LiquiTears 1.4% Ophth Soln] Med 04/13/19 17:16 Ordered DOSE ml EYELF Q4H PRN Rivaroxaban [Xarelto] Med 04/13/19 18:00 Ordered 20 mg PO WITHDINNER Rosuvastatin [Crestor] Med 04/14/19 09:00 Ordered 40 mg PO DAILY metFORMIN [Glucophage] Med 04/13/19 18:00 Ordered 500 mg PO BIDMEALS Resuscitation Status Routine Resus Stat 04/13/19 16:28 Ordered Medication Orders Acetaminophen (Tylenol) 650 mg PO Q6H PRN PRN Reason: HIP PAIN Artificial Tears (Liquitears 1.4% Ophth Soln) ml EYELF Q4H PRN PRN Reason: Dry Eyes Aspirin (Aspirin) 81 mg PO DAILY [facility] Cyanocobalamin (Vitamin B12) 500 mcg PO DAILY [facility] Donepezil HCl (Aricept) 10 mg PO BEDTIME [facility] Folic Acid (Folic Acid) 0.8 mg PO DAILY [facility] Isosorbide Mononitrate (Imdur) 30 mg PO DAILY [facility] Metformin HCl (Glucophage) 500 mg PO BIDMEALS [facility] Metoprolol Tartrate (Lopressor) 25 mg PO BID [facility] Nitroglycerin (Nitrostat) 0.4 mg SL Q5M PRN PRN Reason: Chest Pain Non-Formulary Medication (Rosuvastatin [Crestor]) 40 mg PO DAILY [facility] Rivaroxaban (Xarelto) 20 mg PO WITHDINNER [facility] Assessment/Plan Comment:: 1. Admit to swing bed for PT/OT services. 2. Diabetic diet with supplements. Accuchecks bid. 3. Continue home medications. 4. DVT prophylaxis: patient on Xarelto, will continue. Ambulation per PT/OT. Weight bearing with surgical boot as tolerated. 5. Dry dressing to remain until seen by Podiatry, adjust as needed. Wound vac remove when battery dies. 6. DNR/DNI. - Mortality Measure Prognosis:: Good
[2019-04-13] MEDS: metFORMIN 500 MG Tab PO SCH (18:54)
[2019-04-13] MEDS: Donepezil 10 MG Tab PO SCH (20:35)
[2019-04-13] MEDS: Metoprolol Tartrate 25 MG Tab PO SCH (20:35)
[2019-04-14] MEDS: metFORMIN 500 MG Tab PO SCH ×2 (08:59→18:11)
[2019-04-14] MEDS: Rosuvastatin 20 MG Tab PO SCH (09:00)
[2019-04-14] MEDS: Aspirin 81 MG Tab.Chew PO SCH (09:00)
[2019-04-14] MEDS: Isosorbide Mononitrate 30 MG Tab.ER PO SCH (09:00)
[2019-04-14] MEDS: Folic Acid 0.4 MG Tab PO SCH (09:00)
[2019-04-14] MEDS: Cyanocobalamin (Vitamin B12) 500 MCG Tab PO SCH (09:01)
[2019-04-14] MEDS: Metoprolol Tartrate 25 MG Tab PO SCH ×2 (09:04→20:23)
[2019-04-14] MEDS: Donepezil 10 MG Tab PO SCH (20:23)
[2019-04-15] MEDS: metFORMIN 500 MG Tab PO SCH ×2 (09:19→18:07)
[2019-04-15] MEDS: Aspirin 81 MG Tab.Chew PO SCH (09:19)
[2019-04-15] MEDS: Folic Acid 0.4 MG Tab PO SCH (09:20)
[2019-04-15] MEDS: Cyanocobalamin (Vitamin B12) 500 MCG Tab PO SCH (09:20)
[2019-04-15] MEDS: Rosuvastatin 20 MG Tab PO SCH (09:20)
[2019-04-15] MEDS: Isosorbide Mononitrate 30 MG Tab.ER PO SCH (09:29)
[2019-04-15] MEDS: Metoprolol Tartrate 25 MG Tab PO SCH ×2 (09:30→20:33)
[2019-04-15] MEDS: Donepezil 10 MG Tab PO SCH (20:33)
[2019-04-16] MEDS: Rosuvastatin 20 MG Tab PO SCH (09:56)
[2019-04-16] MEDS: Aspirin 81 MG Tab.Chew PO SCH (09:56)
[2019-04-16] MEDS: metFORMIN 500 MG Tab PO SCH ×2 (09:56→18:31)
[2019-04-16] MEDS: Folic Acid 0.4 MG Tab PO SCH (09:57)
[2019-04-16] MEDS: Isosorbide Mononitrate 30 MG Tab.ER PO SCH (09:57)
[2019-04-16] MEDS: Metoprolol Tartrate 25 MG Tab PO SCH ×2 (09:58→20:41)
[2019-04-16] MEDS: Cyanocobalamin (Vitamin B12) 500 MCG Tab PO SCH (09:59)
[2019-04-16] MEDS: Donepezil 10 MG Tab PO SCH (20:42)
[2019-04-17] MEDS: Isosorbide Mononitrate 30 MG Tab.ER PO SCH (08:26)
[2019-04-17] MEDS: metFORMIN 500 MG Tab PO SCH ×2 (08:26→17:04)
[2019-04-17] MEDS: Cyanocobalamin (Vitamin B12) 500 MCG Tab PO SCH (08:26)
[2019-04-17] MEDS: Metoprolol Tartrate 25 MG Tab PO SCH ×2 (08:27→20:10)
[2019-04-17] MEDS: Folic Acid 0.4 MG Tab PO SCH (08:27)
[2019-04-17] MEDS: Rosuvastatin 20 MG Tab PO SCH (08:28)
[2019-04-17] MEDS: Aspirin 81 MG Tab.Chew PO SCH (08:28)
[2019-04-17] MEDS: Donepezil 10 MG Tab PO SCH (20:09)
--- NOTE | 2019-04-18 07:50 | PCM.PN ---
- General Info Date of Service: 04/18/19 Admission Dx/Problem (Free Text): Patient has no concerns. His foot is wrapped up he has no pain, fevers or chills - Patient Data Vitals - Most Recent: Last Vital Signs Temp 97.4 F 04/17/19 08:00 Pulse 80 04/17/19 20:10 Resp 16 04/17/19 08:00 BP 107/72 04/17/19 20:10 Pulse Ox 97 04/17/19 16:00 Weight - Most Recent: 207 lb Lab Results Last 24 Hours: Laboratory Results - last 24 hr 04/17/19 04/17/19 04/18/19 Range/Units 06:38 17:06 07:16 POC Glucose 143 H 190 H 140 H (80-116) mg/dL Med Orders - Current: Current Medications Acetaminophen (Tylenol) 650 mg PO Q6H PRN PRN Reason: HIP PAIN Artificial Tears (Liquitears 1.4% Ophth Soln) 0 ml EYELF Q4H PRN PRN Reason: Dry Eyes Aspirin (Aspirin) 81 mg PO DAILY [facility] Last Admin: 04/17/19 08:28 Dose: 81 mg Cyanocobalamin (Vitamin B12) 500 mcg PO DAILY [facility] Last Admin: 04/17/19 08:26 Dose: 500 mcg Donepezil HCl (Aricept) 10 mg PO BEDTIME [facility] Last Admin: 04/17/19 20:09 Dose: 10 mg Folic Acid (Folic Acid) 0.8 mg PO DAILY [facility] Last Admin: 04/17/19 08:27 Dose: 0.8 mg Isosorbide Mononitrate (Imdur) 15 mg PO DAILY [facility] Last Admin: 04/17/19 08:26 Dose: 15 mg Metformin HCl (Glucophage) 500 mg PO BIDMEALS [facility] Last Admin: 04/17/19 17:04 Dose: 500 mg Metoprolol Tartrate (Lopressor) 12.5 mg PO BID [facility] Last Admin: 04/17/19 20:10 Dose: 12.5 mg Nitroglycerin (Nitrostat) 0.4 mg SL Q5M PRN PRN Reason: Chest Pain Rivaroxaban (Xarelto) 20 mg PO WITHDINNER [facility] Last Admin: 04/17/19 17:04 Dose: 20 mg Rosuvastatin Calcium (Crestor) 40 mg PO DAILY [facility] Last Admin: 04/17/19 08:28 Dose: 40 mg Discontinued Medications Isosorbide Mononitrate (Imdur) 30 mg PO DAILY [facility] Last Admin: 04/15/19 09:29 Dose: Not Given Metoprolol Tartrate (Lopressor) 25 mg PO BID [facility] Last Admin: 04/15/19 09:30 Dose: Not Given - Exam General: Alert, Oriented, Cooperative Lungs: Normal Respiratory Effort Extremities: Other (Right foot wrapped up in a boot so I did not observe today.) Sepsis Event Note - Evaluation Sepsis Screening Result: No Definite Risk - Focused Exam Vital Signs: Vital Signs Pulse BP 04/17/19 20:10 80 107/72 Date Exam was Performed: 04/18/19 Time Exam was Performed: 07:49 - Problem List & Annotations (1) 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 SNOMED Code(s): 59022049070841276 Code(s): Z89.411 - ACQUIRED ABSENCE OF RIGHT GREAT TOE Status: Acute Current Visit: Yes Onset Date: 04/11/19 (2) S/P debridement SNOMED Code(s): 017620898, 869997310 Code(s): Z98.890 - OTHER SPECIFIED POSTPROCEDURAL STATES Status: Acute Current Visit: Yes Onset Date: 04/11/19 (3) S/P vascular surgery SNOMED Code(s): 215604983, 342918503 Code(s): Z98.890 - OTHER SPECIFIED POSTPROCEDURAL STATES Status: Acute Current Visit: Yes Onset Date: 04/07/19 Annotation/Comment:: Right femoral endarterectomy (4) Cellulitis of fifth toe of left foot SNOMED Code(s): 38336815 Code(s): L03.032 - CELLULITIS OF LEFT TOE Status: Acute Current Visit: No Annotation/Comment:: I suggested daily soaks, and follow up with PCP tomorrow for further management. Surgical debridement needed. (5) Diabetes type 2, controlled SNOMED Code(s): 71724589, 825003010 Code(s): E11.9 - TYPE 2 DIABETES MELLITUS WITHOUT COMPLICATIONS Status: Acute Current Visit: No Qualifiers: Diabetes mellitus continuous churn buttermaker insulin use: without continuous churn buttermaker use - Problem List Review Problem List Initiated/Reviewed/Updated: Yes - Plan Plan:: 1 discharge home with PT/OT and home health.
--- NOTE | 2019-04-18 07:56 | PCM.DCSUM1 ---
Discharge Summary - Hospital Course Free Text/Narrative:: Hospital course-patient was placed in swing bed for wound care, PT/OT. His blood sugars relatively control. He did well with PT/OT and wound care. He'll be discharged home with home health/PT/OT. Brief History: Luisito is 78 yr old male who was admitted to [facility] on Apr 05 for non-healing chronic right foot ulcer. MRI showed small area of osteomyelitis of 1st metatarsal. He underwent debridement on 04/11 and IV antibiotics were discontinued as bone margins were negative. Patient also had CTA of abdomen that showed extensive femoral stenosis. He underwent femoral stenting on Apr 07. He has surgical boot on, weight bearing as tolerated. PT/ OT recommended. Had wound vac placed on Apr 07, remove wound vac when battery dies. Dry sterile dressing can stay on until patient follows up with Dr Jones , podiatry Apr 28. Follow up with vascular surgery on Apr 21. Follow up with Dr Mancia on Apr 22. Hgb 10.4 which has been stable for last few days. He is feeling fine, no complaints when arrived to swing bed. Flu vaccin 01/10/2019, Pneumococcal PCV 13 10/30/2018, PPSV23 01/21/2011, Shingrix 02/15/2019, 11/05/2018, TDAP 08/21/2010. Diagnosis: Stroke: No - Discharge Data Discharge Date: 04/18/19 Discharge Disposition: Home, W Home Health Agency 06 Condition: Good - Referral to Home Health Date of Face to Face Encounter: 04/18/19 Reason for Homebound Status: Status post surgery for vascular surgery, osteomyelitis, and amputation of toe. 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 SNOMED Code(s): 23168096344022446 ICD Code: Z89.411 - ACQUIRED ABSENCE OF RIGHT GREAT TOE Status: Acute Current Visit: Yes Onset Date: 04/11/19 (2) S/P debridement SNOMED Code(s): 706963307, 783958187 ICD Code: Z98.890 - OTHER SPECIFIED POSTPROCEDURAL STATES Status: Acute Current Visit: Yes Onset Date: 04/11/19 (3) S/P vascular surgery SNOMED Code(s): 103621638, 699381574 ICD Code: Z98.890 - OTHER SPECIFIED POSTPROCEDURAL STATES Status: Acute Current Visit: Yes Onset Date: 04/07/19 Problem Details: Right femoral endarterectomy (4) Cellulitis of fifth toe of left foot SNOMED Code(s): 69531836 ICD Code: L03.032 - CELLULITIS OF LEFT TOE Status: Acute Current Visit: No Problem Details: I suggested daily soaks, and follow up with PCP tomorrow for further management. Surgical debridement needed. (5) Diabetes type 2, controlled SNOMED Code(s): 29223084, 649203058 ICD Code: E11.9 - TYPE 2 DIABETES MELLITUS WITHOUT COMPLICATIONS Status: Acute Current Visit: No Qualifiers: Diabetes mellitus manager long term care insulin use: without manager long term care use - Patient Summary/Data Consults: Consultations 04/13/19 16:28 OT Evaluation and Treatment [CONS] Routine Please Evaluate and Treat. OT Reason for Consult: ADL's This query below is only for informational purposes and is not editable. PT Evaluation and Treatment [CONS] Routine Please Evaluate and Treat. PT Reason for Consult: Ambulation This query below is only for informational purposes and is not editable. - Patient Instructions Diet: Diabetic Diet Activity: As Tolerated Driving: Do Not Drive Showering/Bathing: May Shower Wound/Incision Care: Keep Operative Site/Wound Site Clean and Dry Other/Special Instructions: Home health/PT/OT. Recheck with Dr. Mancia in 1 week. Recheck with vascular surgery with previously scheduled rechecks. - Discharge Plan Home Medications: Home Meds Donepezil HCl 10 mg PO BEDTIME 06/24/18 [History] Isosorbide Mononitrate [Imdur] 30 mg PO DAILY 06/24/18 [History] Metoprolol Tartrate 25 mg PO BID 06/24/18 [History] Rivaroxaban [Xarelto] 20 mg PO WITHDINNER 06/24/18 [History] metFORMIN [Glucophage] 500 mg PO BIDMEALS 06/24/18 [History] Nitroglycerin [Nitrostat] 0.4 mg SL Q5M PRN 06/30/18 [History] Acetaminophen [Tylenol] 650 mg PO Q6H PRN 08/26/18 [History] Rosuvastatin [Crestor] 40 mg PO DAILY 08/26/18 [History] Aspirin 81 mg PO DAILY 04/13/19 [History] Cyanocobalamin (Vitamin B-12) [Vitamin B-12] 500 mcg PO DAILY 04/13/19 [History] Folic Acid 0.8 mg PO DAILY 04/13/19 [History] Polyvinyl Alcohol [LiquiTears 1.4% Ophth Soln] 1 drop EYELF Q4H PRN 04/13/19 [ History] Isosorbide Mononitrate [Imdur] 15 mg PO DAILY tab.er 04/18/19 [Rx] Metoprolol Tartrate [Lopressor] 12.5 mg PO BID tablet 04/18/19 [Rx] Patient Handouts: Fall Prevention in Hospitals, Adult, Deep Vein Thrombosis - Discharge Summary/Plan Comment DC Time >30 min.: No - Patient Data Vitals - Most Recent: Last Vital Signs Temp 97.4 F 04/17/19 08:00 Pulse 80 04/17/19 20:10 Resp 16 04/17/19 08:00 BP 107/72 04/17/19 20:10 Pulse Ox 97 04/17/19 16:00 Weight - Most Recent: 207 lb Lab Results - Last 24 hrs: Laboratory Results - last 24 hr 04/17/19 04/17/19 04/18/19 Range/Units 06:38 17:06 07:16 POC Glucose 143 H 190 H 140 H (80-116) mg/dL Med Orders - Current: Current Medications Acetaminophen (Tylenol) 650 mg PO Q6H PRN PRN Reason: HIP PAIN Artificial Tears (Liquitears 1.4% Ophth Soln) 0 ml EYELF Q4H PRN PRN Reason: Dry Eyes Aspirin (Aspirin) 81 mg PO DAILY [facility] Last Admin: 04/17/19 08:28 Dose: 81 mg Cyanocobalamin (Vitamin B12) 500 mcg PO DAILY [facility] Last Admin: 04/17/19 08:26 Dose: 500 mcg Donepezil HCl (Aricept) 10 mg PO BEDTIME [facility] Last Admin: 04/17/19 20:09 Dose: 10 mg Folic Acid (Folic Acid) 0.8 mg PO DAILY [facility] Last Admin: 04/17/19 08:27 Dose: 0.8 mg Isosorbide Mononitrate (Imdur) 15 mg PO DAILY [facility] Last Admin: 04/17/19 08:26 Dose: 15 mg Metformin HCl (Glucophage) 500 mg PO BIDMEALS [facility] Last Admin: 04/17/19 17:04 Dose: 500 mg Metoprolol Tartrate (Lopressor) 12.5 mg PO BID [facility] Last Admin: 04/17/19 20:10 Dose: 12.5 mg Nitroglycerin (Nitrostat) 0.4 mg SL Q5M PRN PRN Reason: Chest Pain Rivaroxaban (Xarelto) 20 mg PO WITHDINNER [facility] Last Admin: 04/17/19 17:04 Dose: 20 mg Rosuvastatin Calcium (Crestor) 40 mg PO DAILY [facility] Last Admin: 04/17/19 08:28 Dose: 40 mg Discontinued Medications Isosorbide Mononitrate (Imdur) 30 mg PO DAILY [facility] Last Admin: 04/15/19 09:29 Dose: Not Given Metoprolol Tartrate (Lopressor) 25 mg PO BID [facility] Last Admin: 04/15/19 09:30 Dose: Not Given
[2019-04-18] MEDS: metFORMIN 500 MG Tab PO SCH (09:20)
[2019-04-18] MEDS: Cyanocobalamin (Vitamin B12) 500 MCG Tab PO SCH (09:21)
[2019-04-18] MEDS: Aspirin 81 MG Tab.Chew PO SCH (09:21)
[2019-04-18] MEDS: Folic Acid 0.4 MG Tab PO SCH (09:21)
[2019-04-18] MEDS: Rosuvastatin 20 MG Tab PO SCH (09:21)
[2019-04-18] MEDS: Isosorbide Mononitrate 30 MG Tab.ER PO SCH (09:23)
[2019-04-18] MEDS: Metoprolol Tartrate 25 MG Tab PO SCH (09:24)
== END 2019-04-18 11:30 | disposition home health service (06) | DRG 561 ==
LOC: FB.MS 15:37
PROVIDERS: ADMIT Family Medicine; ATTEND Family Medicine
DX: Z47.81 Encounter for orthopedic aftercare following surgical amputation (principal); E11.51 Type 2 diabetes mellitus with diabetic peripheral angiopathy without gangrene; E11.621 Type 2 diabetes mellitus with foot ulcer; E11.69 Type 2 diabetes mellitus with other specified complication; E11.42 Type 2 diabetes mellitus with diabetic polyneuropathy; L97.519 Non-pressure chronic ulcer of other part of right foot with unspecified severity; L03.032 Cellulitis of left toe; Z66 Do not resuscitate; H91.90 Unspecified hearing loss, unspecified ear; H54.7 Unspecified visual loss; I48.91 Unspecified atrial fibrillation; E78.00 Pure hypercholesterolemia, unspecified; I25.10 Atherosclerotic heart disease of native coronary artery without angina pectoris; M77.9 Enthesopathy, unspecified; F03.90 Unspecified dementia, unspecified severity, without behavioral disturbance, psychotic disturbance, mood disturbance, and anxiety; E66.9 Obesity, unspecified; Z96.649 Presence of unspecified artificial hip joint; Z89.422 Acquired absence of other left toe(s); Z79.899 Other long term (current) drug therapy; Z79.84 Long term (current) use of oral hypoglycemic drugs; Z79.82 Long term (current) use of aspirin; Z89.411 Acquired absence of right great toe; Z98.890 Other specified postprocedural states; Z86.718 Personal history of other venous thrombosis and embolism; Z79.01 Long term (current) use of anticoagulants; Z88.8 Allergy status to other drugs, medicaments and biological substances; Z88.5 Allergy status to narcotic agent; Z88.0 Allergy status to penicillin; Z87.891 Personal history of nicotine dependence; Z68.26 Body mass index [BMI] 26.0-26.9, adult
CPT/HCPCS: 82962; 97110-GO; 97110-GP; 97116-GP; 97161-GP; 97165-GO; 97530-GO; A9270-GY

== ENCOUNTER 2019-08-10 17:23 | Emergency (ER) | payer MEDICARE, BC ==
[2019-08-10] MEDS ORDERED: Sodium Chloride 0.9% 10 ML Syringe FLUSH PRN (18:18)
[2019-08-10] MEDS ORDERED: Linezolid 600 MG in Premix Bag 1 BAG IV STA (19:50)
--- NOTE | 2019-08-10 20:01 | EDM.PDOC ---
ED HPI GENERAL MEDICAL PROBLEM - General Chief Complaint: Lower Extremity Injury/Pain Time Seen by Provider: 08/10/19 17:25 - History of Present Illness INITIAL COMMENTS - FREE TEXT/NARRATIVE: Patient presented to the ED because of right foot wound and discharge. The wound on the right foot is getting bigger in size with foul smelling discharge and a gangrene developing on top of the wound. There is no associated fever, chills, cough or cold symptoms. Patient was recently prescribed linezolid for 2 weeks and doxycycline for 10 days by ID from [place]. Patient has a h/o of diabetic foot infection with amputation of the right great toe sometime in May 2019. Right Foot Pain Score (Numeric/FACES): 4 - Related Data Allergies Allergy/AdvReac Type Severity Reaction Status Date / Time brimonidine Allergy Other Verified 08/10/19 19:45 diclofenac Allergy Nausea and Verified 08/10/19 19:45 Vomiting morphine Allergy Nausea and Verified 08/10/19 19:45 Vomiting Penicillins Allergy Airway Verified 08/10/19 19:45 Tightness Home Meds: Home Meds Donepezil HCl 10 mg PO BEDTIME 06/24/18 [History] Metoprolol Tartrate 25 mg PO BID 06/24/18 [History] Rivaroxaban [Xarelto] 20 mg PO WITHDINNER 06/24/18 [History] metFORMIN [Glucophage] 500 mg PO BIDMEALS 06/24/18 [History] Nitroglycerin [Nitrostat] 0.4 mg SL Q5M PRN 06/30/18 [History] Acetaminophen [Tylenol] 650 mg PO Q6H PRN 08/26/18 [History] Rosuvastatin [Crestor] 40 mg PO DAILY 08/26/18 [History] Aspirin 81 mg PO DAILY 04/13/19 [History] Cyanocobalamin (Vitamin B-12) [Vitamin B-12] 500 mcg PO DAILY 04/13/19 [History] Folic Acid 0.8 mg PO DAILY 04/13/19 [History] Polyvinyl Alcohol [LiquiTears 1.4% Ophth Soln] 1 drop EYELF Q4H PRN 04/13/19 [ History] Isosorbide Mononitrate [Imdur] 15 mg PO DAILY tab.er 04/18/19 [Rx] Isosorbide Mononitrate [Imdur] 15 mg PO DAILY #0 04/18/19 [Rx] Metoprolol Tartrate [Lopressor] 12.5 mg PO BID tablet 04/18/19 [Rx] Past Medical History HEENT History: Reports: Glaucoma, Hard of Hearing, Impaired Vision Other HEENT History: ASTIGMATISM Cardiovascular History: Reports: Afib, Angina, Blood Clots/VTE/DVT, CAD, High Cholesterol, Hypertension, [place], PVD, Stents, Other (See Below) Other Cardiovascular History: peripheral artery disease Gastrointestinal History: Reports: None Genitourinary History: Reports: None Musculoskeletal History: Reports: Amputation, Other (See Below) Other Musculoskeletal History: ENTHESOPATHY OF HIP REGION, right great toe amputation Neurological History: Reports: Neuropathy, Peripheral Other Neuro History: CONFUSION, DEMENTIA Psychiatric History: Reports: Dementia Endocrine/Metabolic History: Reports: Diabetes, Type II, Obesity/BMI 30+ Dermatologic History: Reports: Other (See Below) Other Dermatologic History: bruising easily - Past Surgical History Other HEENT Surgeries/Procedures: EYE PROCEDURE Cardiovascular Surgical History: Reports: Vascular Surgery Other Cardiovascular Surgeries/Procedures: EXPRESS SHUNT, CARDIAC CATHETERIZATION Musculoskeletal Surgical History: Reports: Amputation, Hip Replacement, Joint Replacement, Other (See Below) Social & Family History - Family History Family Medical History: Noncontributory - Tobacco Use Smoking Status *Q: Never Smoker - Caffeine Use Caffeine Use: Reports: Coffee Caffeine Use Comment: 1 cup per day - Recreational Drug Use Recreational Drug Use: No Review of Systems - Review of Systems Review Of Systems: See Below Constitutional: Reports: No Symptoms Ears: Reports: No Symptoms Nose: Reports: No Symptoms Mouth/Throat: Reports: No Symptoms Respiratory: Reports: No Symptoms Cardiovascular: Reports: No Symptoms GI/Abdominal: Reports: No Symptoms Genitourinary: Reports: No Symptoms Musculoskeletal: Reports: No Symptoms Skin: Reports: No Symptoms Neurological: Reports: No Symptoms Psychiatric: Reports: No Symptoms ED EXAM, GENERAL - Physical Exam Exam: See Below Exam Limited By: No Limitations General Appearance: Alert, No Apparent Distress Ears: Normal External Exam, Normal Canal Nose: Normal Inspection, Normal Mucosa Throat/Mouth: Normal Inspection, Normal Lips Head: Atraumatic, Normocephalic Neck: Normal Inspection, Supple, Non-Tender Respiratory/Chest: No Respiratory Distress, Lungs Clear, Normal Breath Sounds Cardiovascular: Normal Peripheral Pulses, Regular Rate, Rhythm, No Edema Back Exam: Normal Inspection Extremities: Other (RLE swelling) Skin Exam: Warm (Quarter size eschar heel of rt foot. Quarter size deep wound on the lateral aspect of rt foot) Course - Vital Signs Text/Narrative:: Labs reviewed with patient and his daughter and verbalized full understanding Linezolid 600 mg IV x1 Last Recorded V/S: Last Vital Signs Temp 36.4 C 08/10/19 17:23 Pulse 80 08/10/19 17:23 Resp 18 08/10/19 17:23 BP 147/75 H 08/10/19 17:23 Pulse Ox 98 08/10/19 17:23 - Orders/Labs/Meds Orders: Active Orders 24 hr Category Date Time Status VL Duplex Lwr Ext Veins Ltd Rt [US] Stat Exams 08/10/19 18:35 Taken CULTURE BLOOD [BC] Stat Lab 08/10/19 18:32 Received CULTURE BLOOD [BC] Stat Lab 08/10/19 19:25 Received CULTURE ROUTINE + SMEAR [RM] Stat Lab 08/10/19 18:25 Received LACTIC ACID [CHEM] Stat Lab 08/10/19 19:29 Ordered Sodium Chloride 0.9% [Saline Flush] Med 08/10/19 18:18 Active 10 ml FLUSH ASDIRECTED PRN Saline Lock Insert [OM.PC] Routine Oth 08/10/19 18:18 Ordered Medication Orders Sodium Chloride (Saline Flush) 10 ml FLUSH ASDIRECTED PRN PRN Reason: Keep Vein Open Labs: Laboratory Tests 08/10/19 08/10/19 08/10/19 Range/Units 18:32 18:32 18:32 WBC 5.4 (4.5-12.0) X10-3/uL RBC 3.12 L (4.30-5.75) x10(6)uL Hgb 10.0 L (13.5-17.8) g/dL Hct 30.2 (30.0-51.3) % MCV 96.8 H (80-96) fL MCH 32.2 (27.7-33.6) pg MCHC 33.3 (32.2-35.4) g/dL RDW 13.7 (11.5-15.5) % Plt Count 352 (125-369) X10(3)uL MPV 6.0 L (7.4-10.4) fL Neutrophils % (Manual) 59 (46-82) % Lymphocytes % (Manual) 22 (13-37) % Monocytes % (Manual) 16 H (4-12) % Eosinophils % (Manual) 3 (0-5) % Sodium 140 (135-145) mmol/L Potassium 4.0 (3.5-5.3) mmol/L Chloride 103 (100-110) mmol/L Carbon Dioxide 29 (21-32) mmol/L BUN 9 (7-18) mg/dL Creatinine 0.9 (0.70-1.30) mg/dL Est Cr Clr Drug Dosing TNP Estimated GFR (MDRD) > 60 (>60) BUN/Creatinine Ratio 10.0 (9-20) Glucose 135 H (80-116) mg/dL Calcium 8.3 L (8.6-10.2) mg/dL Total Bilirubin 0.6 (0.1-1.3) mg/dL AST 23 (5-25) IU/L ALT 22 D (12-36) U/L Alkaline Phosphatase 65 (56-112) IU/L C-Reactive Protein 1.7 H (0.5-0.9) mg/dL Total Protein 6.9 (6.0-8.0) g/dL Albumin 2.6 L (3.2-4.6) g/dL Globulin 4.3 g/dL Albumin/Globulin Ratio 0.6 Meds: Medications Generic Name Dose Route Start Last Admin Trade Name Freq PRN Reason Stop Dose Admin Sodium Chloride 10 ml 08/10/19 18:18 Saline Flush FLUSH ASDIRECTED PRN Keep Vein Open Departure - Departure Time of Disposition: 19:45 Disposition: DC/Tfer to Acute Hospital 02 Condition: Good Clinical Impression: Diabetic foot infection - Discharge Information Referrals: Edmond Mancia MD [Primary Care Provider] - Sepsis Event Note - Evaluation Sepsis Screening Result: No Definite Risk - Focused Exam Vital Signs: Vital Signs Temp Pulse Resp BP Pulse Ox 08/10/19 17:23 36.4 C 80 18 147/75 H 98 Date Exam was Performed: 08/10/19 Time Exam was Performed: 19:45 - My Orders Last 24 Hours: My Active Orders 08/10/19 18:18 Sodium Chloride 0.9% [Saline Flush] 10 ml FLUSH ASDIRECTED PRN Saline Lock Insert [OM.PC] Routine 08/10/19 18:25 CULTURE ROUTINE + SMEAR [RM] Stat 08/10/19 18:32 CULTURE BLOOD [BC] Stat 08/10/19 18:35 VL Duplex Lwr Ext Veins Ltd Rt [US] Stat 08/10/19 19:25 CULTURE BLOOD [BC] Stat 08/10/19 19:29 LACTIC ACID [CHEM] Stat - Assessment/Plan Last 24 Hours: My Active Orders 08/10/19 18:18 Sodium Chloride 0.9% [Saline Flush] 10 ml FLUSH ASDIRECTED PRN Saline Lock Insert [OM.PC] Routine 08/10/19 18:25 CULTURE ROUTINE + SMEAR [RM] Stat 08/10/19 18:32 CULTURE BLOOD [BC] Stat 08/10/19 18:35 VL Duplex Lwr Ext Veins Ltd Rt [US] Stat 08/10/19 19:25 CULTURE BLOOD [BC] Stat 08/10/19 19:29 LACTIC ACID [CHEM] Stat
[2019-08-10] MEDS ORDERED: hydrOXYzine HCl 50 MG/ML SDV IM ONE (20:34)
[2019-08-10] MEDS ORDERED: Potassium Chloride 20 MEQ Tab.ER PO ONE (20:34)
== END 2019-08-10 20:30 ==
LOC: FB.ED 17:23
DX: E11.628 Type 2 diabetes mellitus with other skin complications (principal); L08.9 Local infection of the skin and subcutaneous tissue, unspecified; I10 Essential (primary) hypertension; I25.2 Old myocardial infarction; E11.51 Type 2 diabetes mellitus with diabetic peripheral angiopathy without gangrene; F03.90 Unspecified dementia, unspecified severity, without behavioral disturbance, psychotic disturbance, mood disturbance, and anxiety; E66.9 Obesity, unspecified; E11.42 Type 2 diabetes mellitus with diabetic polyneuropathy; Z88.6 Allergy status to analgesic agent; Z88.5 Allergy status to narcotic agent; Z88.0 Allergy status to penicillin; Z79.899 Other long term (current) drug therapy; I48.91 Unspecified atrial fibrillation; I25.10 Atherosclerotic heart disease of native coronary artery without angina pectoris; E78.00 Pure hypercholesterolemia, unspecified; Z79.01 Long term (current) use of anticoagulants; Z79.84 Long term (current) use of oral hypoglycemic drugs; Z79.82 Long term (current) use of aspirin
CPT/HCPCS: 36415; 80053; 83605; 85025; 86140; 87040; 87070; 87077; 87186; 87205; 93971; 96374; 99285; J2020

== ENCOUNTER 2019-08-17 09:34 | Inpatient (IN) | payer MEDICARE, BC, MEDICAID ==
--- NOTE | 2019-08-17 14:21 | PCM.HP.2 ---
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 He also has dementia,encephalopathy,DM2,severe peripheral vascular disease,CAD,cardiomyopathy,HTN and moderate protein energy malnutrition.He has come for admission to [facility] for rehab. right leg Pain Score (Numeric/FACES): 6 - Related Data Allergies/Adverse Reactions: Allergies Allergy/AdvReac Type Severity Reaction Status Date / Time brimonidine Allergy Other Verified 08/17/19 13:19 diclofenac Allergy Nausea and Verified 08/17/19 13:19 Vomiting morphine Allergy Nausea and Verified 08/17/19 13:19 Vomiting Penicillins Allergy Airway Verified 08/17/19 13:19 Tightness Home Medications: Home Meds Metoprolol Tartrate 25 mg PO BID 06/24/18 [History] metFORMIN [Glucophage] 500 mg PO BIDMEALS 06/24/18 [History] Nitroglycerin [Nitrostat] 0.4 mg SL Q5M PRN 06/30/18 [History] Acetaminophen [Tylenol] 650 mg PO Q6H PRN 08/26/18 [History] Aspirin 81 mg PO DAILY 04/13/19 [History] Polyvinyl Alcohol [LiquiTears 1.4% Ophth Soln] 1 drop EYELF Q4H PRN 04/13/19 [ History] Apixaban [Eliquis] 5 mg PO BID 08/17/19 [History] Past Medical History HEENT History: Reports: Glaucoma, Hard of Hearing, Impaired Vision Other HEENT History: ASTIGMATISM Cardiovascular History: Reports: Afib, Angina, Blood Clots/VTE/DVT, CAD, High Cholesterol, Hypertension, [place], PVD, Stents, Other (See Below) Other Cardiovascular History: peripheral artery disease Gastrointestinal History: Reports: None Genitourinary History: Reports: None Musculoskeletal History: Reports: Amputation, Other (See Below) Other Musculoskeletal History: ENTHESOPATHY OF HIP REGION, right great toe amputation Neurological History: Reports: Neuropathy, Peripheral Other Neuro History: CONFUSION, DEMENTIA Psychiatric History: Reports: Dementia Endocrine/Metabolic History: Reports: Diabetes, Type II, Obesity/BMI 30+ Dermatologic History: Reports: Other (See Below) Other Dermatologic History: bruising easily - Past Surgical History Other HEENT Surgeries/Procedures: EYE PROCEDURE Cardiovascular Surgical History: Reports: Vascular Surgery Other Cardiovascular Surgeries/Procedures: EXPRESS SHUNT, CARDIAC CATHETERIZATION Musculoskeletal Surgical History: Reports: Amputation, Hip Replacement, Joint Replacement, Other (See Below) Social & Family History - Family History Family Medical History: Noncontributory - Caffeine Use Caffeine Use: Reports: Coffee Caffeine Use Comment: 1 cup per day H&P Review of Systems - Review of Systems: Review Of Systems: Comprehensive ROS is negative, except as noted in HPI. Exam - Exam Exam: See Below - Exam General: Alert, Oriented, 4 HEENT: PERRLA, Hearing Intact, Mucosa Moist & [place], Nares Patent, Normal Nasal Septum, Posterior Pharynx Clear, Conjunctiva Clear, EOMI, EACs Clear, TMs Clear Neck: Supple, Trachea Midline, 2 Lungs: Clear to Auscultation, Normal Respiratory Effort Cardiovascular: Regular Rate, Regular Rhythm GI/Abdominal Exam: Normal Bowel Sounds, Soft, Non-Tender, No Organomegaly, No Distention, No Abnormal Bruit, No Mass, Pelvis Stable (Male) Exam: No Hernia, Normal Inspection, Normal Prostate, Circumcised Rectal (Males) Exam: Other (Decubitous ulcer stge 1-2) Back Exam: Normal Inspection, Full Range of Motion, NT Extremities: Other (AKA Right) Skin: Warm, Dry, Intact Neurological: Cranial Nerves Intact, Reflexes Equal Bilateral Neuro Extensive - Mental Status: Alert, Memory Loss-Remote Events. No: Oriented x3 Neuro Extensive - Motor, Sensory, Reflexes: CN II-XII Intact, Normal Gait, Normal Reflexes Psychiatric: Depressed - Problem List (1) Above knee amputation of left lower extremity SNOMED Code(s): 552545582, 687119709 ICD Code: S78.112A - COMPLETE TRAUMATIC AMP AT LEVEL BETW LEFT HIP AND KNEE, INIT Status: Acute Current Visit: Yes (2) Protein-energy malnutrition SNOMED Code(s): 631255802 ICD Code: E46 - UNSPECIFIED PROTEIN-CALORIE MALNUTRITION Status: Acute Current Visit: Yes Qualifiers: Protein-calorie malnutrition severity: moderate Qualified Code(s): E44.0 - Moderate protein-calorie malnutrition (3) Palliative care encounter SNOMED Code(s): 977054746, 848516291 ICD Code: Z51.5 - ENCOUNTER FOR PALLIATIVE CARE Status: Acute Current Visit: Yes (4) Debility SNOMED Code(s): 28960801 ICD Code: R53.81 - OTHER MALAISE Status: Acute Current Visit: No (5) Diabetes type 2, controlled SNOMED Code(s): 44153943, 956732104 ICD Code: E11.9 - TYPE 2 DIABETES MELLITUS WITHOUT COMPLICATIONS Status: Acute Current Visit: No (6) Afib SNOMED Code(s): 82234283 ICD Code: I48.91 - UNSPECIFIED ATRIAL FIBRILLATION Status: Chronic Current Visit: No Qualifiers: (7) CAD (coronary artery disease) SNOMED Code(s): 49784213 ICD Code: I25.10 - ATHSCL HEART DISEASE OF [place] CORONARY ARTERY W/O ANG PCTRS Status: Chronic Current Visit: No (8) Dementia SNOMED Code(s): 40517758 ICD Code: F03.90 - UNSPECIFIED DEMENTIA WITHOUT BEHAVIORAL DISTURBANCE Status: Chronic Current Visit: No (9) Peripheral vascular disease SNOMED Code(s): 650127238 ICD Code: I73.9 - PERIPHERAL VASCULAR DISEASE, UNSPECIFIED Status: Chronic Current Visit: No (10) Decubital ulcer SNOMED Code(s): 140726786 ICD Code: L89.90 - PRESSURE ULCER OF UNSPECIFIED SITE, UNSPECIFIED STAGE Status: Acute Current Visit: Yes Qualifiers: Pressure injury location: back, unspecified location Problem List Initiated/Reviewed/Updated: Yes Orders Last 24hrs: Active Orders 24 hr Category Date Time Status Patient Status [ADT] Routine ADT 08/17/19 14:14 Ordered Height and Weight [RC] WEEKLY Care 08/17/19 14:14 Ordered Oxygen Therapy [RC] PRN Care 08/17/19 14:14 Ordered Up With Assistance [RC] ASDIRECTED Care 08/17/19 14:14 Ordered VTE/DVT Education [RC] Per Unit Routine Care 08/17/19 14:14 Ordered Vital Signs [RC] PER UNIT ROUTINE Care 08/17/19 14:14 Ordered OT Evaluation and Treatment [CONS] Routine Cons 08/17/19 14:14 Ordered PT Evaluation and Treatment [CONS] Routine Cons 08/17/19 14:14 Ordered Regular Diet [DIET] Diet 08/17/19 Breakfast Ordered Resuscitation Status Routine Resus Stat 08/17/19 14:14 Ordered Assessment/Plan Comment:: PT OT. Wound care. Frequent turns
[2019-08-17] MEDS ORDERED: Polyvinyl Alcohol 1.4% Ophth Soln 15 ML Bottle EYELF PRN (16:03)
[2019-08-17] MEDS ORDERED: Nitroglycerin 0.4 MG Tab.SL SL PRN (16:03)
[2019-08-17] MEDS: metFORMIN 500 MG Tab PO SCH (19:52)
[2019-08-17] MEDS: Apixaban 5 MG Tab PO SCH (20:01)
[2019-08-17] MEDS: Metoprolol Tartrate 25 MG Tab PO SCH (20:01)
[2019-08-17] MEDS: Acetaminophen 325 MG Tab PO PRN (20:01)
[2019-08-18] MEDS: Acetaminophen 325 MG Tab PO PRN ×2 (07:02→17:35)
[2019-08-18] MEDS: Aspirin 81 MG Tab.Chew PO SCH (08:20)
[2019-08-18] MEDS: metFORMIN 500 MG Tab PO SCH ×2 (08:20→17:33)
[2019-08-18] MEDS: Metoprolol Tartrate 25 MG Tab PO SCH ×2 (08:21→20:26)
[2019-08-18] MEDS: Apixaban 5 MG Tab PO SCH ×2 (08:21→20:25)
[2019-08-19] MEDS: metFORMIN 500 MG Tab PO SCH ×2 (09:01→18:23)
[2019-08-19] MEDS: Metoprolol Tartrate 25 MG Tab PO SCH ×2 (09:02→20:24)
[2019-08-19] MEDS: Aspirin 81 MG Tab.Chew PO SCH (09:02)
[2019-08-19] MEDS: Apixaban 5 MG Tab PO SCH ×2 (09:02→20:24)
[2019-08-19] MEDS: Acetaminophen 325 MG Tab PO PRN ×2 (09:03→20:35)
[2019-08-20] MEDS: Acetaminophen 325 MG Tab PO PRN ×2 (06:43→21:05)
[2019-08-20] MEDS: Aspirin 81 MG Tab.Chew PO SCH (08:51)
[2019-08-20] MEDS: Apixaban 5 MG Tab PO SCH ×2 (08:52→21:05)
[2019-08-20] MEDS: Metoprolol Tartrate 25 MG Tab PO SCH ×2 (08:52→21:05)
[2019-08-20] MEDS: metFORMIN 500 MG Tab PO SCH ×2 (08:52→18:24)
--- NOTE | 2019-08-20 14:09 | PN ---
DATE SEEN: 08/20/2019 SUBJECTIVE: Mr. Mata is a 79-year-old male in a swing bed. Had an AK amputation of right lower leg due to osteomyelitis. Dementia, peripheral vascular disease, heart disease, ongoing issues. Sugars have been well controlled. MEDICATIONS: Reviewed and appropriate. OUTSTANDING LABORATORY STUDIES: Sugars 137 and 124. PHYSICAL EXAMINATION: VITAL SIGNS: 36.4, 106/68, 80 is the mean blood pressure, respirations 20, O2 saturation 98%. GENERAL: Appears comfortable. NECK: Benign. Thyroid small. CHEST: Clear in all lung valdez. HEART: No ectopy or murmur. ABDOMEN: Benign. Surgical stump and ahmet in good position. EXTREMITIES: AK amputation, right leg. PLAN: Therapy intervention and care, longterm likely goal. /[id number] DAYNA/ADRIANA
[2019-08-21] MEDS: Acetaminophen 325 MG Tab PO PRN (09:31)
[2019-08-21] MEDS: metFORMIN 500 MG Tab PO SCH ×2 (09:32→18:19)
[2019-08-21] MEDS: Aspirin 81 MG Tab.Chew PO SCH (09:32)
[2019-08-21] MEDS: Apixaban 5 MG Tab PO SCH ×2 (09:32→20:06)
[2019-08-21] MEDS: Metoprolol Tartrate 25 MG Tab PO SCH ×2 (09:36→20:06)
--- NOTE | 2019-08-21 11:54 | PN ---
DATE SEEN: 08/21/2019 SUBJECTIVE: Luisito Mata is a 79-year-old male, admitted on 08/17/2019. Underwent right AK amputation for peripheral vascular disease. Doing reasonably well. Skill sets are improving slowly. LABORATORY STUDIES: Sugars only. MEDICATIONS: Reviewed and appropriate. OBJECTIVE: VITAL SIGNS: 36.4, 125/57, 18, and 99. GENERAL: Appears comfortable. Memory and forgetfulness present. NECK: Benign. CHEST: Clear in all lung valdez. HEART: No ectopy or murmur. ABDOMEN: Benign. EXTREMITIES: Stump healing well. [place] in place. ASSESSMENT: Right above-knee amputation. PLAN: Medications, care and treatment. Pain control on board. /[id number] DAYNA/ADRIANA
[2019-08-22] MEDS: Apixaban 5 MG Tab PO SCH ×2 (09:23→20:20)
[2019-08-22] MEDS: Aspirin 81 MG Tab.Chew PO SCH (09:23)
[2019-08-22] MEDS: Metoprolol Tartrate 25 MG Tab PO SCH ×2 (09:24→20:20)
[2019-08-22] MEDS: metFORMIN 500 MG Tab PO SCH ×2 (09:24→17:51)
--- NOTE | 2019-08-22 13:19 | PN ---
DATE SEEN: 08/22/2019 SUBJECTIVE: Luisito Mata is a 79-year-old male, admitted on 08/17/2019. Had a right AK amputation for peripheral vascular disease. Comorbid issues include dementia, diabetes mellitus, peripheral vascular disease, coronary artery disease, and hypertension. Sugars have been comfortable. Last few days 137, 124, 124, 118. OBJECTIVE: GENERAL: Appears comfortable. Disorientated and confused. NECK: No JVD. CHEST: Clear in all lung valdez. HEART: No ectomy or murmur. ABDOMEN: Benign. EXTREMITIES: [place] in surgical site right lower extremity intact. ASSESSMENT: 1. Amputation, right leg. 2. Complicated dementia. PLAN: Eventual transfer to retirement. /[id number] DAYNA/ADRIANA
[2019-08-23] MEDS: metFORMIN 500 MG Tab PO SCH ×2 (09:31→18:17)
[2019-08-23] MEDS: Apixaban 5 MG Tab PO SCH ×2 (09:31→20:09)
[2019-08-23] MEDS: Metoprolol Tartrate 25 MG Tab PO SCH ×2 (09:31→20:10)
[2019-08-23] MEDS: Aspirin 81 MG Tab.Chew PO SCH (09:31)
--- NOTE | 2019-08-23 12:10 | PN ---
DATE SEEN: 08/23/2019 Luisito Mata is a 79-year-old male in swing bed for rehab. He had a right above knee amputation. Doing well. Pain appears to be controlled. Conversation, mentation, and thought processing. Vital signs are stable. Wound looked well. PT on board. /[id number] DAYNA/ADRIANA
[2019-08-24] MEDS: Apixaban 5 MG Tab PO SCH ×2 (09:14→20:05)
[2019-08-24] MEDS: Metoprolol Tartrate 25 MG Tab PO SCH ×2 (09:14→20:05)
[2019-08-24] MEDS: metFORMIN 500 MG Tab PO SCH ×2 (09:14→17:43)
[2019-08-24] MEDS: Aspirin 81 MG Tab.Chew PO SCH (09:14)
--- NOTE | 2019-08-24 13:30 | PN ---
DATE SEEN: 08/24/2019 SUBJECTIVE: Mr. Luisito Mata is a 79-year-old male, admitted with amputation of right leg due to peripheral vascular disease. Lethargic, unresponsive at times, noncompliant with therapy. DISCHARGE PLANNING: To [facility], Friday expected. LABORATORY STUDIES: Blood sugars are only 118 and 102. OBJECTIVE: VITAL SIGNS: 112/57, 66, and 16. GENERAL: Awakens, but lethargic. NECK: Benign. CHEST: Clear in all lung valdez. HEART: Occasional ectopy. Soft murmur. ABDOMEN: Benign. MUSCULOSKELETAL: Surgical site, right AK amputation, intact. ASSESSMENT: Above knee amputation, right leg. PLAN: Supportive measures, therapy, discharge planning. /[id number] DAYNA/ADRIANA
[2019-08-25] MEDS: Apixaban 5 MG Tab PO SCH ×2 (08:08→20:13)
[2019-08-25] MEDS: metFORMIN 500 MG Tab PO SCH ×2 (08:08→18:00)
[2019-08-25] MEDS: Aspirin 81 MG Tab.Chew PO SCH (08:09)
[2019-08-25] MEDS: Metoprolol Tartrate 25 MG Tab PO SCH ×2 (08:13→20:14)
--- NOTE | 2019-08-25 13:31 | PN ---
DATE SEEN: 08/25/2019 Luisito Mata is a 79-year-old in for rehab purposes, had amputation of right lower leg due to peripheral vascular disease. Discharge planning to [facility] possibly on Friday. Otherwise, doing well. Appetite has been good. Vital signs have been stable. Complementary care. /[id number] DAYNA/ADRIANA
[2019-08-26] MEDS: metFORMIN 500 MG Tab PO SCH ×2 (08:24→18:11)
[2019-08-26] MEDS: Aspirin 81 MG Tab.Chew PO SCH (08:25)
[2019-08-26] MEDS: Apixaban 5 MG Tab PO SCH ×2 (08:25→20:05)
[2019-08-26] MEDS: Metoprolol Tartrate 25 MG Tab PO SCH ×2 (08:25→20:22)
[2019-08-27] MEDS: Metoprolol Tartrate 25 MG Tab PO SCH (08:12)
[2019-08-27] MEDS: metFORMIN 500 MG Tab PO SCH (08:12)
[2019-08-27] MEDS: Apixaban 5 MG Tab PO SCH (08:12)
[2019-08-27] MEDS: Aspirin 81 MG Tab.Chew PO SCH (08:12)
[2019-08-27] MEDS: Acetaminophen 325 MG Tab PO PRN (08:15)
--- NOTE | 2019-08-27 08:39 | PCM.PN ---
- General Info Date of Service: 08/27/19 Subjective Update: The patient has no complaint. He has no leg pain. - Patient Data Vitals - Most Recent: Last Vital Signs Temp 96.8 F L 08/26/19 08:20 Pulse 51 L 08/27/19 08:12 Resp 16 08/26/19 08:20 BP 91/61 08/27/19 08:12 Pulse Ox 99 08/26/19 08:20 Weight - Most Recent: 160 lb 14.4 oz I&O - Last 24 Hours: Intake & Output 08/26/19 08/27/19 08/27/19 22:59 06:59 14:59 Intake Total 300 Balance 300 Med Orders - Current: Current Medications Acetaminophen (Tylenol) 650 mg PO Q6H PRN PRN Reason: HIP PAIN Last Admin: 08/27/19 08:15 Dose: 650 mg Apixaban (Eliquis) 5 mg PO BID [facility] Last Admin: 08/27/19 08:12 Dose: 5 mg Artificial Tears (Liquitears 1.4% Ophth Soln) 0 ml EYELF Q4H PRN PRN Reason: Dry Eyes Aspirin (Aspirin) 81 mg PO DAILY [facility] Last Admin: 08/27/19 08:12 Dose: 81 mg Metformin HCl (Glucophage) 500 mg PO BIDMEALS [facility] Last Admin: 08/27/19 08:12 Dose: 500 mg Metoprolol Tartrate (Lopressor) 25 mg PO BID [facility] Last Admin: 08/27/19 08:12 Dose: 25 mg Nitroglycerin (Nitrostat) 0.4 mg SL Q5M PRN PRN Reason: Chest Pain - Exam General: Alert, Cooperative Sepsis Event Note - Evaluation Sepsis Screening Result: No Definite Risk - Focused Exam Vital Signs: Vital Signs Pulse BP 08/27/19 08:12 51 L 91/61 Date Exam was Performed: 08/27/19 Time Exam was Performed: 08:38 - Problem List & Annotations (1) Above knee amputation of right lower extremity SNOMED Code(s): 854861811, 669209648 Code(s): S78.111A - COMPLETE TRAUMATIC AMP AT LEVEL BETW R HIP AND KNEE, INIT Status: Acute Current Visit: Yes - Problem List Review Problem List Initiated/Reviewed/Updated: Yes - Plan Plan:: DC the senior living PT/OT.
[2019-08-27] MEDS ORDERED: Tuberculin, PPD 5 Units/0.1 ML 1 ML MDV IDERM ONE (09:34)
--- NOTE | 2019-08-27 10:42 | DISCH ---
DISCHARGE DATE: 08/27/2019 HISTORY: Luisito Mata is a 79-year-old male, admitted on 08/17/2019 to swing bed. Had an AK amputation at [facility] for peripheral vascular disease. He has been involved in physical therapy and restorative attempts. Cognitive issues have impaired his ability to make good progress. LABORATORY STUDIES: Sugars comfortably normal 118, 102, 121, 121, and 107. PHYSICAL EXAMINATION: VITAL SIGNS: 36 degrees, 106/59, 16, 99%. GENERAL: Awake, alert, but confused during conversation. NECK: Benign. CHEST: Clear in all lung valdez. HEART: No ectopy. Soft murmur. ABDOMEN: Benign. EXTREMITIES: Surgical site AKA right side intact. ASSESSMENT: 1. [id number]. 2. Dementia. PLAN: Discharge plan is in place to a long-term care. /[id number] DAYNA/ADRIANA
== END 2019-08-27 10:08 | DRG 560 ==
LOC: FB.MS 13:53
PROVIDERS: ADMIT Family Medicine; ATTEND Family Medicine
DX: Z47.81 Encounter for orthopedic aftercare following surgical amputation (principal); E44.0 Moderate protein-calorie malnutrition; Z51.5 Encounter for palliative care; I48.91 Unspecified atrial fibrillation; I25.10 Atherosclerotic heart disease of native coronary artery without angina pectoris; F03.90 Unspecified dementia, unspecified severity, without behavioral disturbance, psychotic disturbance, mood disturbance, and anxiety; I73.9 Peripheral vascular disease, unspecified; L89.109 Pressure ulcer of unspecified part of back, unspecified stage; E11.51 Type 2 diabetes mellitus with diabetic peripheral angiopathy without gangrene; I10 Essential (primary) hypertension; Z89.611 Acquired absence of right leg above knee; H91.90 Unspecified hearing loss, unspecified ear; H54.7 Unspecified visual loss; E78.00 Pure hypercholesterolemia, unspecified; I25.2 Old myocardial infarction; Z95.5 Presence of coronary angioplasty implant and graft; E66.9 Obesity, unspecified; Z96.641 Presence of right artificial hip joint
CPT/HCPCS: 82962; 86580; 97161-GP; 97165-GO; 97530-GO; 97542-GO; A9270-GY

== ENCOUNTER 2020-12-15 17:57 | Emergency (ER) | payer MEDICARE ==
[2020-12-15] MEDS ORDERED: Sodium Chloride 0.9% 1,000 ML IV ONE (17:58)
[2020-12-15] MEDS ORDERED: Propofol 200 MG/20 ML SDV IV ONE (17:58)
[2020-12-15] MEDS ORDERED: Sodium Chloride 0.9% 10 ML Syringe FLUSH PRN (18:12)
[2020-12-15] MEDS ORDERED: HYDROmorphone 2 MG/ML SDV IVPUSH ONE (18:13)
--- NOTE | 2020-12-15 18:30 | EDM.PDOC ---
<Benjamin Torres - Last Filed: 12/15/20 19:20> ED HPI GENERAL MEDICAL PROBLEM - General Chief Complaint: Lower Extremity Injury/Pain Stated Complaint: LEFT LEG ISSIUES Time Seen by Provider: 12/15/20 18:15 Source of Information: Reports: Family. Denies: Patient History Limitations: Reports: Other (patient non-verbal) - History of Present Illness INITIAL COMMENTS - FREE TEXT/NARRATIVE: 80 yo male is brought over from a local [facility] with what looks like a dislocated L hip. He has dislocated this in the past. He is non-verbal so not able to tell us what happened or if he is in pain. Onset: Today Onset Date: 12/15/20 Duration: Minutes: Location: Reports: Lower Extremity, Left Quality: Reports: Ache (?) Severity: Mild (?) Improves with: Reports: Rest Worsens with: Reports: Movement Context: Reports: Trauma (unsure?) Associated Symptoms: Reports: No Other Symptoms Treatments HEEL BRUSHER: Reports: Other (see below) (none) - Related Data Allergies Allergy/AdvReac Type Severity Reaction Status Date / Time brimonidine Allergy Other Verified 08/17/19 13:19 diclofenac Allergy Nausea and Verified 08/17/19 13:19 Vomiting morphine Allergy Nausea and Verified 08/17/19 13:19 Vomiting Penicillins Allergy Airway Verified 08/17/19 13:19 Tightness Home Meds: Home Meds Metoprolol Tartrate 25 mg PO BID 06/24/18 [History] metFORMIN [Glucophage] 500 mg PO BIDMEALS 06/24/18 [History] Nitroglycerin [Nitrostat] 0.4 mg SL Q5M PRN 06/30/18 [History] Acetaminophen [Tylenol] 650 mg PO Q6H PRN 08/26/18 [History] Aspirin 81 mg PO DAILY 04/13/19 [History] Polyvinyl Alcohol [LiquiTears 1.4% Ophth Soln] 1 drop EYELF Q4H PRN 04/13/19 [History] Apixaban [Eliquis] 5 mg PO BID 08/17/19 [History] Past Medical History HEENT History: Reports: Glaucoma, Hard of Hearing, Impaired Vision Other HEENT History: ASTIGMATISM Cardiovascular History: Reports: Afib, Angina, Blood Clots/VTE/DVT, CAD, High Cholesterol, Hypertension, [place], PVD, Stents, Other (See Below) Other Cardiovascular History: peripheral artery disease Gastrointestinal History: Reports: None Genitourinary History: Reports: None Musculoskeletal History: Reports: Amputation, Other (See Below) Other Musculoskeletal History: ENTHESOPATHY OF HIP REGION, right great toe amputation Neurological History: Reports: Neuropathy, Peripheral Other Neuro History: CONFUSION, DEMENTIA Psychiatric History: Reports: Dementia Endocrine/Metabolic History: Reports: Diabetes, Type II, Obesity/BMI 30+ Other Endocrine/Metabolic History: diabetic foot infection, right foot ulcer- 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/17 Dermatologic History: Reports: Other (See Below) Other Dermatologic History: bruising easily - Past Surgical History Other HEENT Surgeries/Procedures: EYE PROCEDURE Cardiovascular Surgical History: Reports: Vascular Surgery Other Cardiovascular Surgeries/Procedures: EXPRESS SHUNT, CARDIAC CATHETERIZATION Musculoskeletal Surgical History: Reports: Amputation, Hip Replacement, Joint Replacement, Other (See Below) Social & Family History - Family History Family Medical History: No Pertinent Family History - Caffeine Use Caffeine Use: Reports: Coffee Caffeine Use Comment: 1 cup per day Review of Systems - Review of Systems Review Of Systems: See Below Reason Not Obtained: patient is non-verbal Constitutional: Reports: No Symptoms Musculoskeletal: Reports: Joint Pain (L hip) Skin: Reports: No Symptoms Neurological: Reports: No Symptoms ED EXAM, GENERAL - Physical Exam Exam: See Below Exam Limited By: No Limitations General Appearance: Alert, WD/WN, No Apparent Distress Extremities: No Pedal Edema, Limited Range of Motion (of L hip, L leg is deviated medially at the hip. ), Other (R leg is amputated from old issue. ). No: Normal Inspection, Normal Range of Motion, Non-Tender, Pedal Edema, Increased Warmth, Redness Neurological: Alert, CN II-XII Intact. No: Oriented, Normal Cognition Skin Exam: Warm, Dry, Intact, Normal Color, No Rash Course - Radiology Interpretation Free Text/Narrative:: L hip [id number] Departure - Departure Disposition: DC/Tfer to Other Clinical Impression: Hip dislocation, left Qualifiers: Encounter type: subsequent encounter Qualified Code(s): S73.005D - Unspecified dislocation of left hip, subsequent encounter - Discharge Information Instructions: Hip Dislocation Referrals: PCP,Unknown [Ordering Only Provider] - Forms: ED Department Discharge Additional Instructions: Patient being transferred to emergency department at [place], [place]. <Bipin Melton W - Last Filed: 12/15/20 21:52> Course - Vital Signs Text/Narrative:: 2 attempts were made to relocate the hip 1 using Versed and 1 using propofol. Both attempts failed. She will be transferred to emergency department in [facility]. - Orders/Labs/Meds Orders: Active Orders 24 hr Category Date Time Status Hip Min 1V Lt [CR] Stat Exams 12/15/20 20:10 Taken Pelvis 1V or 2V [CR] Stat Exams 12/15/20 18:13 Taken Sodium Chloride 0.9% [Saline Flush] Med 12/15/20 18:12 Active 10 ml FLUSH ASDIRECTED PRN Saline Lock Insert [OM.PC] Routine Oth 12/15/20 18:12 Ordered Medication Orders Sodium Chloride (Sodium Chloride 0.9% 10 Ml Syringe) 10 ml FLUSH ASDIRECTED PRN PRN Reason: Keep Vein Open Meds: Medications Generic Name Dose Route Start Last Admin Trade Name Freq PRN Reason Stop Dose Admin Sodium Chloride 10 ml 12/15/20 18:12 Sodium Chloride 0.9% 10 Ml Syringe FLUSH ASDIRECTED PRN Keep Vein Open Discontinued Medications Generic Name Dose Route Start Last Admin Trade Name Freq PRN Reason Stop Dose Admin Hydromorphone HCl 0.5 mg 12/15/20 18:13 12/15/20 18:36 Hydromorphone 2 Mg/Ml Sdv IVPUSH 12/15/20 18:14 0.5 mg ONETIME ONE Administration Midazolam HCl 3 mg 12/15/20 19:20 Midazolam 1 Mg/Ml 2 Ml Sdv IVPUSH 12/15/20 19:21 ONETIME ONE Departure - Departure Time of Disposition: 21:50 Condition: Fair - Discharge Information *PRESCRIPTION DRUG MONITORING PROGRAM REVIEWED*: Not Applicable *COPY OF PRESCRIPTION DRUG MONITORING REPORT IN PATIENT STEVE: Not Applicable - My Orders Last 24 Hours: My Active Orders 12/15/20 20:10 Hip Min 1V Lt [CR] Stat - Assessment/Plan Last 24 Hours: My Active Orders 12/15/20 20:10 Hip Min 1V Lt [CR] Stat
[2020-12-15] MEDS ORDERED: Midazolam 1 MG/ML 2 ML SDV IVPUSH ONE (19:20)
== END 2020-12-15 22:30 | disposition other institution (70) ==
LOC: FB.ED 17:57
DX: T84.021A Dislocation of internal left hip prosthesis, initial encounter (principal); I48.91 Unspecified atrial fibrillation; I25.119 Atherosclerotic heart disease of native coronary artery with unspecified angina pectoris; E78.00 Pure hypercholesterolemia, unspecified; I10 Essential (primary) hypertension; I25.2 Old myocardial infarction; E11.42 Type 2 diabetes mellitus with diabetic polyneuropathy; E66.9 Obesity, unspecified; Z68.30 Body mass index [BMI] 30.0-30.9, adult; Z88.8 Allergy status to other drugs, medicaments and biological substances; Z88.5 Allergy status to narcotic agent; Z88.0 Allergy status to penicillin; Z79.01 Long term (current) use of anticoagulants; Z79.82 Long term (current) use of aspirin; Z79.899 Other long term (current) drug therapy
CPT/HCPCS: 72170; 73501; 96374; 99284; J1170; J2704; J7030; 01200-QZ